=== PATIENT | male | born 1960 | race African-American/Black ===

== ENCOUNTER 2018-06-29 20:24 | Emergency (ER) | payer OTHER ==
[2018-06-29 21:22] VITALS: RESP 18
[2018-06-29] MEDS ORDERED: IBUPROFEN 800 MG TAB PO STA (23:09)
--- NOTE | 2018-06-29 23:14 | ED ---
General Adult HPI - General Chief complaint: Extremity Injury, Lower Stated complaint: pulled muscle-[facility] Time Seen by Provider: 06/29/18 21:27 Source: patient Mode of arrival: ambulatory Limitations: no limitations - History of Present Illness Initial comments: This a 58-year-old male with past medical history of hypertension who presents today for chief complaint of left medial thigh pain. Patient states this at work around 7:30 PM bending down lifting to parts when he lifted up one of the parts he noticed a sharp pain in his left medial thigh, and a bulge. He states he knows for sure that this was not there this morning. He states it happened directly after bending his legs lifting up with the part. Patient was otherwise were to report to emergency department for further brush and treatment. Upon arrival patient was complaining of dull aching of the left medial thigh. Patient states that the pain does not radiate, and increases with palpation. Patient is able to fully range at the hip knee and ankle of the legs bilaterally without difficulty, as well as fully weight-bear. Patient denies any changes in urine color, pain out of portion, pallor of the extremity , numbness, tingling, loss of sensation of the lower extremities, or any other symptoms. Patient denies any recent fever, chills, shortness of breath, chest pain, back pain, abdominal pain, nausea or vomiting, numbness or tingling, dysuria or hematuria, constipation or diarrhea, headaches or visual changes, or any other complaints. Pt BP elevated at 151/101- pt states that he has uncontrolled BP, and is findings a new primary care currently. He states that he was previously prescribed norvasc 5mg - Related Data Home Medications Medication Instructions Recorded Confirmed amLODIPine [Norvasc] 10 mg PO DAILY 04/25/15 04/25/15 Previous Rx's Medication Instructions Recorded amLODIPine [Norvasc] 5 mg PO DAILY #30 tab 04/25/15 Ibuprofen [Motrin] 800 mg PO Q8H PRN 7 Days #21 tab 06/29/18 amLODIPine [Norvasc] 5 mg PO DAILY 30 Days #30 tab 06/29/18 Allergies Allergy/AdvReac Type Severity Reaction Status Date / Time No Known Allergies Allergy Verified 09/27/14 19:58 Review of Systems ROS Statement: Those systems with pertinent positive or pertinent negative responses have been documented in the HPI. ROS Other: All systems not noted in ROS Statement are negative. Constitutional: Denies: fever, chills, weakness Eyes: Denies: eye pain ENT: Denies: ear pain, throat pain Respiratory: Denies: cough, dyspnea, wheezes, hemoptysis, stridor Cardiovascular: Denies: chest pain, palpitations Endocrine: Denies: fatigue Gastrointestinal: Denies: abdominal pain, nausea, vomiting, diarrhea, constipation Genitourinary: Denies: urgency, dysuria, frequency, hematuria Musculoskeletal: Reports: myalgia. Denies: back pain, joint swelling, arthralgia Skin: Denies: rash, lesions, change in color Neurological: Denies: headache, weakness, numbness, paresthesias, confusion, abnormal gait, vertigo Past Medical History Past Medical History: Hypertension History of Any Multi-Drug Resistant Organisms: None Reported Past Surgical History: No Surgical Hx Reported Past Psychological History: No Psychological Hx Reported Smoking Status: Current every day smoker Past Alcohol Use History: None Reported Past Drug Use History: None Reported General Exam - General Exam Comments Initial Comments: General: The patient is awake and alert, in no distress, and does not appear acutely ill. Eye: Pupils are equal, round and reactive to light, extra-ocular movements are intact. No nystagmus. There is normal conjunctiva bilaterally. No signs of icterus. Ears, nose, mouth and throat: There are moist mucous membranes and no oral lesions. Neck: The neck is supple, there is no tenderness or JVD. Cardiovascular: There is a regular rate and rhythm. No murmur, rub or gallop is appreciated. Respiratory: Lungs are clear to auscultation, respirations are non-labored, breath sounds are equal. No wheezes, stridor, rales, or rhonchi. Musculoskeletal: No visible bulk atrophy, hypertrophy, fasciculations, or myoclonus of the UE or LE b/l. Full PROM in UE and LE b/l. Bilateral muscle strength 5/5 for the following muscles: deltoid, biceps, triceps, brachioradialis, wrist extensors/flexor, hip flexor, hip abductors/adductors, hamstrings, quadriceps, feet dorsiflexors/plantar flexors. Sensation intact of the LE equally b/l. Compartments are soft and compressible. No erythema or ecchymosis. Palpable mass in the left medial upper thigh. DP and Posterior tibial pulses equal bilaterally 2+ equally. Neurological: A&O x 3. CN II-XII intact, There are no obvious motor or sensory deficits. Coordination appears grossly intact. Speech is normal. Skin: Skin is warm and dry and no rashes or lesions are noted. Psychiatric: Cooperative, appropriate mood & affect, normal judgment. Limitations: no limitations Course Vital Signs 06/29/18 21:17 Temperature 97.3 F L Pulse Rate 71 Respiratory 18 Rate Blood Pressure 152/101 O2 Sat by Pulse 98 Oximetry Medical Decision Making - Medical Decision Making 58-year-old male presenting today for chief complaint of left eye pain concerning for muscular tear. Given patient's history, was sudden onset of pain and palpable mass in the left thigh after active range of motion I feel that this injury is most likely muscular in nature, possibly a tear of the adductor muscles. Case discussed with Dr. Vargas who agrees with impression. Pt shows no current signs of rhabdo or compartment syndrome at this time. Pt neurovascularly intact. At this time we feel pt is stable for discharge with orthopedic surgery f/u in 1-2 days. Pt agrees with plan. Pt BP elevated at 151/ 100, pt has no complaints upon ROS, no signs of EOD. Pt states he usually takes norvasc 5mg daily however he has been out for a week because he switching PCP. Pt was given 5mg norvac while in the hospital and discharged with 30 day prescription until pt establishes care with new PCP. Repeat BP upon discharge 175/76. Disposition Clinical Impression: Tearing of muscle, Acute pain of left thigh Disposition: HOME SELF-CARE Condition: Good Instructions: Muscle Strain (ED) Additional Instructions: Please use medication as discussed. Please follow-up with orthopedic surgery in the next 1-2 days for muscle tear of the medial thigh. Please return to emergency room if the symptoms increase or worsen or for any other concerns, including increasing pain or darkening of urine as discussed. Prescriptions: Ibuprofen [Motrin] 800 mg PO Q8H PRN 7 Days #21 tab PRN Reason: Pain Is patient prescribed a controlled substance at d/c from ED?: No Referrals: None,Stated [Primary Care Provider] - 1-2 days Tristan Angel MD [STAFF PHYSICIAN] - 1-2 days Time of Disposition: 23:14
[2018-06-29] MEDS ORDERED: amLODIPine 5 MG TAB PO STA (23:25)
[2018-06-29 23:32] VITALS: BP 175/76; PULSE 87; TEMP 98
== END 2018-06-29 23:32 | disposition home or self-care (01) ==
LOC: EC 20:24
DX: S76.212A Strain of adductor muscle, fascia and tendon of left thigh, initial encounter (principal); I10 Essential (primary) hypertension; F17.200 Nicotine dependence, unspecified, uncomplicated; Z79.899 Other long term (current) drug therapy; X50.1XXA Overexertion from prolonged static or awkward postures, initial encounter; Y92.69 Other specified industrial and construction area as the place of occurrence of the external cause; Y99.0 Civilian activity done for income or pay
CPT/HCPCS: 99283

== ENCOUNTER 2018-07-11 22:14 | Emergency (ER) | payer BC ==
[2018-07-11 22:16] VITALS: BP 153/100; PULSE 91; RESP 18; TEMP 98
--- NOTE | 2018-07-11 22:30 | ED ---
General Adult HPI - General Chief complaint: Recheck/Abnormal Lab/Rx Stated complaint: High BP Time Seen by Provider: 07/11/18 22:17 Source: patient, RN notes reviewed Mode of arrival: ambulatory Limitations: no limitations - History of Present Illness Initial comments: This is a pleasant 58-year-old male presents emergency Department with chief complaint of medication refill. Patient states that he lost his prescription for Norvasc 5 mg in which she takes 2 daily for hypertension. Patient states that he did not have his Norvasc today. Patient denies any chest pain, shortness breath, or vision, nausea, vomiting. Patient states that he is new to the area and has not established with a primary care physician. Patient states he is in the midst of this. Patient offers no other complaints at this time. - Related Data Home Medications Medication Instructions Recorded Confirmed amLODIPine [Norvasc] 10 mg PO DAILY 04/25/15 04/25/15 Previous Rx's Medication Instructions Recorded amLODIPine [Norvasc] 5 mg PO DAILY #30 tab 04/25/15 Ibuprofen [Motrin] 800 mg PO Q8H PRN 7 Days #21 tab 06/29/18 amLODIPine [Norvasc] 5 mg PO DAILY 30 Days #30 tab 07/11/18 Allergies Allergy/AdvReac Type Severity Reaction Status Date / Time No Known Allergies Allergy Verified 07/11/18 22:16 Review of Systems ROS Statement: Those systems with pertinent positive or pertinent negative responses have been documented in the HPI. ROS Other: All systems not noted in ROS Statement are negative. Past Medical History Past Medical History: Hypertension History of Any Multi-Drug Resistant Organisms: None Reported Past Surgical History: No Surgical Hx Reported Past Psychological History: No Psychological Hx Reported Smoking Status: Current every day smoker Past Alcohol Use History: None Reported Past Drug Use History: None Reported General Exam Limitations: no limitations General appearance: alert, in no apparent distress Head exam: Present: atraumatic, normocephalic, normal inspection Respiratory exam: Present: normal lung sounds bilaterally. Absent: respiratory distress, wheezes, rales, rhonchi, stridor Cardiovascular Exam: Present: regular rate, normal rhythm, normal heart sounds. Absent: systolic murmur, diastolic murmur, rubs, gallop, clicks Neurological exam: Present: alert, oriented X3, CN II-XII intact, reflexes normal. Absent: motor sensory deficit Skin exam: Present: warm, dry, intact, normal color. Absent: rash Course Vital Signs 07/11/18 22:14 Temperature 98.0 F Pulse Rate 91 Respiratory 18 Rate Blood Pressure 153/100 O2 Sat by Pulse 98 Oximetry Medical Decision Making - Medical Decision Making 58-year-old male presented emergency department for medication refill. Patient has a current blood pressure 157/100. Patient will be given prescription for his Norvasc 5 mg. Patient will given on-call primary care physician and he will follow palpation. Disposition Clinical Impression: Encounter for medication refill, Hypertension Disposition: HOME SELF-CARE Condition: Stable Instructions: Hypertension (ED) Additional Instructions: Please return to the Emergency Department if symptoms worsen or any other concerns. Prescriptions: amLODIPine [Norvasc] 5 mg PO DAILY 30 Days #30 tab Is patient prescribed a controlled substance at d/c from ED?: No Referrals: Brook Bingham MD [STAFF PHYSICIAN] - 1-2 days Time of Disposition: 22:30
== END 2018-07-11 22:37 | disposition home or self-care (01) ==
LOC: EC 22:14
DX: I10 Essential (primary) hypertension (principal); Z76.0 Encounter for issue of repeat prescription; F17.200 Nicotine dependence, unspecified, uncomplicated; Z79.899 Other long term (current) drug therapy
CPT/HCPCS: 99283

== ENCOUNTER → 2018-07-11 | Outpatient (CLI) | payer OTHER ==
--- NOTE | 2018-07-11 23:03 | XR ---
EXAMINATION TYPE: XR femur LT DATE OF EXAM: 07/11/2018 COMPARISON: NONE HISTORY: Femur pain TECHNIQUE: 4 views FINDINGS: There is no fracture nor dislocation. Joint spaces are normal. There is no sign of knee angle nt effusion. IMPRESSION: Negative left femur exam.
== END | disposition home or self-care (01) ==
LOC: RADXRMAIN 21:57
PROVIDERS: ATTEND Physician Assistant
DX: M79.605 Pain in left leg (principal)

== ENCOUNTER 2019-11-28 07:39 | Emergency (ER) | payer OTHER ==
[2019-11-28 07:43] VITALS: BP 152/108; PULSE 69; RESP 16; TEMP 98
[2019-11-28] MEDS ORDERED: ORPHENADRINE 30 MG/ML 2 ML VIAL IM STA (07:56)
[2019-11-28] MEDS ORDERED: ACETAMINOPHEN TAB 500 MG TAB PO STA (07:56)
--- NOTE | 2019-11-28 07:59 | ED ---
General Adult HPI - General Chief complaint: Back Pain/Injury Stated complaint: Shoulder/neck pain Time Seen by Provider: 11/28/19 07:41 Source: EMS, RN notes reviewed Mode of arrival: EMS Limitations: no limitations - History of Present Illness Initial comments: 59-year-old male with a past medical history of hypertension presents to the emergency determine for left neck and shoulder pain. Patient states this has been ongoing for about 4-5 days. States pain is intermittent. Patient states it starts on the left side of his neck and radiates to his left upper shoulder. States that pain worsens with movement. States that he has no pain at this time. States that Motrin alleviates the pain as well as massage and heat. States that when he called the ambulance he was having increased pain but took Motrin and this completely took away the pain. Patient denies any loss of sensation in his left arm. Denies any weakness of the left arm. Patient has no other complaints at this time including shortness of breath, chest pain, abdominal pain, nausea or vomiting, headache, or visual changes. - Related Data Home Medications Medication Instructions Recorded Confirmed amLODIPine [Norvasc] 10 mg PO DAILY 04/25/15 04/25/15 Previous Rx's Medication Instructions Recorded amLODIPine [Norvasc] 5 mg PO DAILY #30 tab 04/25/15 Ibuprofen [Motrin] 800 mg PO Q8H PRN 7 Days #21 tab 06/29/18 amLODIPine [Norvasc] 5 mg PO DAILY 30 Days #30 tab 07/11/18 Acetaminophen [Tylenol] 500 mg PO Q4-6H PRN #20 tab 11/28/19 Cyclobenzaprine [Flexeril] 10 mg PO TID #14 tab 11/28/19 Ibuprofen [Motrin] 600 mg PO Q6HR PRN #20 tab 11/28/19 Allergies Allergy/AdvReac Type Severity Reaction Status Date / Time No Known Allergies Allergy Verified 07/11/18 22:16 Review of Systems ROS Statement: Those systems with pertinent positive or pertinent negative responses have been documented in the HPI. ROS Other: All systems not noted in ROS Statement are negative. Past Medical History Past Medical History: Hypertension History of Any Multi-Drug Resistant Organisms: None Reported Past Surgical History: No Surgical Hx Reported Past Psychological History: No Psychological Hx Reported Smoking Status: Current every day smoker Past Alcohol Use History: None Reported Past Drug Use History: None Reported General Exam Limitations: no limitations General appearance: alert, in no apparent distress Head exam: Present: atraumatic, normocephalic, normal inspection Eye exam: Present: normal appearance, PERRL, EOMI. Absent: scleral icterus, conjunctival injection, periorbital swelling ENT exam: Present: normal exam, mucous membranes moist Neck exam: Present: tenderness (tenderness to L paraspinal cervical muscles. no tenderness to the cervical spine.). Absent: meningismus (full flexion), full ROM (patient has decreased ROM with rotation to the left. Full flexion. Patient states it feels better when he stretches the L paraspinal cervical muscles with lateral flexion. ), lymphadenopathy Respiratory exam: Present: normal lung sounds bilaterally. Absent: respiratory distress, wheezes, rales, rhonchi, stridor Cardiovascular Exam: Present: regular rate, normal rhythm, normal heart sounds. Absent: systolic murmur, diastolic murmur, rubs, gallop, clicks GI/Abdominal exam: Present: normal bowel sounds Extremities exam: Present: normal capillary refill (cap refill < 2 seconds in BUE. radial pulses 2+ bilat) Neurological exam: Present: alert Course Vital Signs 11/28/19 07:40 Temperature 98.0 F Pulse Rate 69 Respiratory 16 Rate Blood Pressure 152/108 O2 Sat by Pulse 97 Oximetry Medical Decision Making - Medical Decision Making Patient presents for left-sided paraspinal neck pain radiating to the left shoulder. Pain is worsened with movement and rotation of the left. Feels b aaron when he laterally flexes to the right and stretches out the muscle. States heat and Motrin alleviate the pain. Patient initially called ambulance but states he took Motrin before they arrived and all his pain is at a 0. States his pain is completely resolved. Given pain worsening with range of motion and alleviation after Motrin pain is likely muscular. Patient was given IM injection of Flexeril and Tylenol to Prevent recurrence. He will be given Motrin and Tylenol outpatient however I did have a long discussion with patient about the appropriate dosing of Motrin. No history of kidney injury, labs were reviewed from previous stays. Discussed using heat and light stretching for pain. Discussed following up with his primary care provider in the next 1-2 days and returning if he has any worsening symptoms. Disposition Clinical Impression: Torticollis, Neck pain Disposition: HOME SELF-CARE Condition: Good Instructions (If sedation given, give patient instructions): Spasmodic Torticollis (ED) Additional Instructions: Please take 1 Motrin every 6 hours as needed. Make sure to eat while taking the Motrin so it does not injure your stomach. You may take Tylenol every 6 hours as needed as well. Take muscle relaxer as directed but do not drive or operate machinery while using this as it may make you drowsy. Apply heat to the area and do gentle stretching. Follow-up with your primary care provider in the next 1-2 days. Return to the emergency department if you have any worsening symptoms. Prescriptions: Cyclobenzaprine [Flexeril] 10 mg PO TID #14 tab Ibuprofen [Motrin] 600 mg PO Q6HR PRN #20 tab PRN Reason: Pain Acetaminophen [Tylenol] 500 mg PO Q4-6H PRN #20 tab PRN Reason: Pain Is patient prescribed a controlled substance at d/c from ED?: No Referrals: Michelle Jaeger MD [Primary Care Provider] - 1-2 days Time of Disposition: 07:56
== END 2019-11-28 08:08 | disposition home or self-care (01) ==
LOC: EC 07:39
DX: M43.6 Torticollis (principal); I10 Essential (primary) hypertension; F17.200 Nicotine dependence, unspecified, uncomplicated; Z79.899 Other long term (current) drug therapy
CPT/HCPCS: 99284; 96372; J2360

== ENCOUNTER → 2020-04-23 | Outpatient (CLI) | payer OTHER ==
--- NOTE | 2020-04-23 14:23 | US ---
EXAMINATION TYPE: US extremity nonvasc mass LT DATE OF EXAM: 04/23/2020 COMPARISON: NONE CLINICAL HISTORY: R22.42 Mass of left thigh. Patient has palpable left inner thigh. Scanning was performed directly over palpable left inner thigh , as well as the contralateral side for comparison purposes. There is echogenic area without definite borders. This appears in the area of striations like muscle tissue. No definite mass seen. IMPRESSION: No distinct mass appreciated at this time. Consider MRI if symptoms persist. Strict clin ical correlation advised.
== END | disposition home or self-care (01) ==
LOC: RADUSWWP 13:44
PROVIDERS: ATTEND Family Medicine
DX: R22.42 Localized swelling, mass and lump, left lower limb (principal)

== ENCOUNTER 2020-08-20 15:54 | Inpatient (IN) | payer MEDICAID, OTHER ==
--- NOTE | 2020-08-20 16:44 | ED ---
Psych HPI - General Chief Complaint: Psychiatric Symptoms Stated Complaint: mental health Time Seen by Provider: 08/20/20 16:02 Source: patient, RN notes reviewed Mode of arrival: ambulatory Limitations: no limitations - History of Present Illness Initial Comments: 60-year-old male presents emergency Department with chief complaint of depression, suicidal ideation. Patient states that he was admitted and recently discharged from [facility]. Patient states he feels he does not need medications. Them and became more depressed. Patient has had thoughts of hurting himself will not go in details. Patient states that he does abuse alcohol, cocaine. Patient states he did use alcohol today. Patient offers no complaints of any physical complaints. - Related Data Previous Rx's Medication Instructions Recorded Albuterol Inhaler [Ventolin Hfa 2 puff INHALATION RT-Q6H PRN 30 08/01/20 Inhaler] Days puff FLUoxetine HCL [PROzac] 20 mg PO DAILY 30 Days cap 08/01/20 Melatonin 5 mg PO HS PRN 30 Days tablet 08/01/20 Nicotine 14Mg/24Hr Patch [Habitrol] 1 patch TRANSDERM DAILY 30 Days 08/01/20 patch amLODIPine [Norvasc] 10 mg PO DAILY 30 Days tab 08/01/20 buPROPion XL [Wellbutrin XL] 300 mg PO DAILY 30 Days tab.er.24h 08/01/20 traZODone HCL [Desyrel] 50 mg PO HS PRN #30 tab 08/01/20 Allergies Allergy/AdvReac Type Severity Reaction Status Date / Time No Known Allergies Allergy Verified 08/20/20 18:10 Review of Systems ROS Statement: Those systems with pertinent positive or pertinent negative responses have been documented in the HPI. ROS Other: All systems not noted in ROS Statement are negative. Past Medical History Past Medical History: Asthma, Hypertension History of Any Multi-Drug Resistant Organisms: None Reported Past Surgical History: No Surgical Hx Reported Past Anesthesia/Blood Transfusion Reactions: No Reported Reaction Past Psychological History: Depression Smoking Status: Current every day smoker Past Alcohol Use History: Daily, Heavy Past Drug Use History: Cocaine General Exam Limitations: no limitations General appearance: alert, in no apparent distress Head exam: Present: atraumatic, normocephalic, normal inspection Eye exam: Present: normal appearance, PERRL, EOMI. Absent: scleral icterus, conjunctival injection, periorbital swelling ENT exam: Present: normal exam, normal oropharynx, mucous membranes moist Neck exam: Present: normal inspection, full ROM. Absent: tenderness, meningismus, lymphadenopathy Respiratory exam: Present: normal lung sounds bilaterally. Absent: respiratory distress, wheezes, rales, rhonchi, stridor Cardiovascular Exam: Present: regular rate, normal rhythm, normal heart sounds. Absent: systolic murmur, diastolic murmur, rubs, gallop, clicks GI/Abdominal exam: Present: soft, normal bowel sounds. Absent: distended, tenderness, guarding, rebound, rigid Neurological exam: Present: alert, oriented X3 Psychiatric exam: Present: depressed, flat affect Course Vital Signs 08/20/20 08/20/20 15:56 19:26 Temperature 98 F 98.4 F Pulse Rate 98 88 Respiratory 18 18 Rate Blood Pressure 137/83 162/80 O2 Sat by Pulse 96 97 Oximetry Medical Decision Making - Lab Data Result diagrams: 08/21/20 07:59 08/21/20 07:59 Disposition Clinical Impression: Cocaine abuse, Major depressive disorder, Suicidal ideation, Alcohol use disorder Disposition: TRANSFER TO PSYCH HOSP/UNIT
[2020-08-20] MEDS ORDERED: MELATONIN 5 MG TABLET PO PRN (20:13)
[2020-08-20] MEDS ORDERED: traZODone HCL 50 MG TAB PO PRN (20:13)
[2020-08-20] MEDS ORDERED: ALBUTEROL INHALER 60 PUFF/8 GM INHALER (MHU) INHALATION PRN (20:13)
[2020-08-20] MEDS ORDERED: MAG HYDROX/AL HYDROX/SIMETH 30 ML CUP PO PRN (20:14)
[2020-08-20] MEDS ORDERED: MAGNESIUM HYDROXIDE 2,400 MG/10 ML CUP PO PRN (20:14)
[2020-08-20] MEDS ORDERED: LORazepam 1 MG TAB PO PRN (20:14)
[2020-08-20] MEDS ORDERED: ACETAMINOPHEN TAB 325 MG TAB PO PRN (20:14)
[2020-08-20] MEDS ORDERED: ZIPRASIDONE 20 MG VIAL IM PRN (20:14)
[2020-08-20] MEDS ORDERED: LORazepam 2 MG/ML INJ IM PRN (20:20)
[2020-08-20] MEDS: NICOTINE 14MG/24HR PATCH TRANSDERM SCH (21:46)
[2020-08-21 08:51] LABS: Basophils # (A) 0.1 k/uL (0-0.2); Basophils % (A) 2 %; Eosinophils # (A) 0.1 k/uL (0-0.7); Eosinophils % (A) 3 %; Lymphocytes # (A) 1.6 k/uL (1.0-4.8); Lymphocytes % (A) 33 %; MCH 32.5 pg (25.0-35.0); MCHC 32.6 g/dL (31.0-37.0); MCV 99.7 fL (80.0-100.0); Mean Platelet Volume 7.8; Monocytes # (A) 0.5 k/uL (0-1.0); Monocytes % (A) 10 %; Neutrophils # (A) 2.5 k/uL (1.3-7.7); Neutrophils % (A) 52 %; Platelet Count 327 k/uL (150-450); RBC 4.61 m/uL (4.30-5.90); RDW 12.9 % (11.5-15.5); WBC 4.8 k/uL (3.8-10.6)
[2020-08-21 08:57] LABS: Albumin 3.6 g/dL (3.5-5.0); Potassium 4.1 mmol/L (3.5-5.1); Total Bilirubin 0.6 mg/dL (0.2-1.3); Total Protein 6.8 g/dL (6.3-8.2)
[2020-08-21] MEDS: amLODIPine 10 MG TAB PO SCH ×2 (09:37→09:41)
[2020-08-21] MEDS: NICOTINE 14MG/24HR PATCH TRANSDERM SCH (09:37)
[2020-08-21] MEDS: FLUoxetine HCL 20 MG CAP PO SCH ×2 (09:37→09:41)
--- NOTE | 2020-08-21 09:56 | P.HP ---
Psychiatric H&P - . H&P Date: 08/21/20 History & Physical: Allergies Allergy/AdvReac Type Severity Reaction Status Date / Time No Known Allergies Allergy Verified 08/20/20 18:10 Vital Signs Temp 97.8 F 08/21/20 06:49 Pulse 65 08/21/20 06:49 Resp 16 08/21/20 06:49 BP 137/76 08/21/20 06:49 Pulse Ox 98 08/21/20 06:49 Intake & Output 08/20/20 08/21/20 08/21/20 18:59 06:59 18:59 Weight 106.594 kg 103.9 kg Laboratory Last Values WBC 4.8 k/uL (3.8-10.6) 08/21/20 07:59 RBC 4.61 m/uL (4.30-5.90) 08/21/20 07:59 Hgb 15.0 gm/dL (13.0-17.5) 08/21/20 07:59 Hct 46.0 % (39.0-53.0) 08/21/20 07:59 MCV 99.7 fL (80.0-100.0) 08/21/20 07:59 MCH 32.5 pg (25.0-35.0) 08/21/20 07:59 MCHC 32.6 g/dL (31.0-37.0) 08/21/20 07:59 RDW 12.9 % (11.5-15.5) 08/21/20 07:59 Plt Count 327 k/uL (150-450) 08/21/20 07:59 Neutrophils % 52 % 08/21/20 07:59 Lymphocytes % 33 % 08/21/20 07:59 Monocytes % 10 % 08/21/20 07:59 Eosinophils % 3 % 08/21/20 07:59 Basophils % 2 % 08/21/20 07:59 Neutrophils # 2.5 k/uL (1.3-7.7) 08/21/20 07:59 Lymphocytes # 1.6 k/uL (1.0-4.8) 08/21/20 07:59 Monocytes # 0.5 k/uL (0-1.0) 08/21/20 07:59 Eosinophils # 0.1 k/uL (0-0.7) 08/21/20 07:59 Basophils # 0.1 k/uL (0-0.2) 08/21/20 07:59 Sodium 141 mmol/L (137-145) 08/21/20 07:59 Potassium 4.1 mmol/L (3.5-5.1) 08/21/20 07:59 Chloride 107 mmol/L (98-107) 08/21/20 07:59 Carbon Dioxide 29 mmol/L (22-30) 08/21/20 07:59 Anion Gap 5 mmol/L 08/21/20 07:59 BUN 14 mg/dL (9-20) 08/21/20 07:59 Creatinine 1.07 mg/dL (0.66-1.25) 08/21/20 07:59 Est GFR (CKD-EPI)AfAm 88 (>60 ml/min/1.73 sqM) 08/21/20 07:59 Est GFR (CKD-EPI)NonAf 76 (>60 ml/min/1.73 sqM) 08/21/20 07:59 Glucose 103 mg/dL (74-99) H 08/21/20 07:59 Calcium 9.0 mg/dL (8.4-10.2) 08/21/20 07:59 Total Bilirubin 0.6 mg/dL (0.2-1.3) 08/21/20 07:59 AST 33 U/L (17-59) 08/21/20 07:59 ALT 36 U/L (4-49) 08/21/20 07:59 Alkaline Phosphatase 79 U/L (38-126) 08/21/20 07:59 Total Protein 6.8 g/dL (6.3-8.2) 08/21/20 07:59 Albumin 3.6 g/dL (3.5-5.0) 08/21/20 07:59 Triglycerides 52 mg/dL (<150) 08/21/20 07:59 Cholesterol 152 mg/dL (<200) 08/21/20 07:59 LDL Cholesterol, Calc 80 mg/dL (0-99) 08/21/20 07:59 HDL Cholesterol 62 mg/dL (40-60) H 08/21/20 07:59 TSH 13.400 mIU/L (0.465-4.680) H 08/21/20 07:59 08/21/20 09:43 IDENTIFYING DATA: Patient is a 60-year-old Jo-Ann male with significant history of depression, alcohol abuse, cocaine use was admitted for depression and thoughts of hurting himself. HPI: Patient presented to the hospital on 08/20/2020 with complaints of depression and suicidal ideation. Patient was recently discharged from [facility] on 08/01/2020 after being admitted for 1 week with similar complaints. Currently the patient is refusing to get out of bed or speak with this advertising copywriter. He expresses he is significantly depressed and has not been able to rest and is refusing to participate in a psychiatric evaluation. He has been noted to refuse medications. PAST PSYCHIATRIC HISTORY: Patient has been diagnosed with Major Depressive Disorder, Cocaine use disorder, and alcohol use disorder. He was discharged from [facility] with home medications of Prozac 20 mg, Wellbutrin XL 300 mg, Trazodone 50 mg and melatonin 5 mg. Patient has set up aftercare with his PCP. He denied any prior attempts at suicide. PMH: Asthma, Hypertension ALLERGIES: NKDA CHEMICAL DEPENDENCY HISTORY: Prior to last admission, patient admitted to be drinking heavily and using cocaine. He is also a daily tobacco user. He was treated at [facility] 5 years ago. He was sober for 2 years before relapsing 2 years ago. He reported drinking up to 2 fifths of liquor per day. FAMILY PSYCHIATRIC/SUBSTANCE USE HISTORY: Unable to obtain SOCIAL HISTORY: From chart review of Dr Burks's assessment on 07/25/2020: "The patient is the oldest of 2 boys born to his parents and stayed together until mom at age 62 of cancer mom was an alcoholic. Dad was a functional alcoholic at 74 of complications of diabetes. The patient has never been although he has 2 children by different women a daughter 30 and a son 30. He does not have much contact with them he does have 2 grandchildren from the. Then he has is lady has lived with for 5 years and her daughter who is 30 and 3 grandchildren. 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 Legally he is on probation until he can come up with $1200 to pay a fine which he has been unable to do. This was for having residue of cocaine in a bag in the back of his car." MENTAL STATUS EXAM: General Appearance: Patient appears to be stated age is resting in bed. Appears slightly disheveled. Behavior: Patient refuses to speak to the provider and has no eye contact. Speech: Patient's speech is non spontaneous, loud in volume. Mood/Affect: Patient reports their mood is depressed, affect is irritable and angry. Suicidality/Homicidality: Unable to assess Perceptions: Unable to assess Though content/process: Unable to assess Memory and concentration: Unable to assess Judgment and insight: Poor STRENGTHS/WEAKNESSES: Unable to assess INTELLECT: verage IMPRESSIONS: Major depressive disorder, recurrent, severe Cocaine use disorder Alcohol use disorder PLAN: -Patient is admitted under voluntary status to [facility]HU for stabilization of psychiatric symptoms and safety. -Medications : Will continue home medications. -Ativan and Geodon PRN for agitation/aggression -WA protocol with Ativan PRN for ETOH withdrawal -Internal Medicine consult to perform medical evaluation and physical. -NRT - nicotine patch -SW on board for discharge planning. Encourage patient to participate in groups to work on coping skills. 08/21/20 13:14
--- NOTE | 2020-08-21 13:44 | P.CONS ---
History of Present Illness - Reason for Consult Medical clearance - History of Present Illness 60-year-old the pleasant male came in the for depression alcohol abuse and cocaine use. Patient does drink one fifth of alcohol every day has been drinking for many days patient has slight tremor. Patient had withdrawals in the past but doesn't want to get admitted to medical floor he says he is fine there and he likes the treatment that he is receiving at the mental health unit. Patient denied any fever chills nausea vomiting abdominal pain dysuria. Patient does smoke trying to cut down on the cigarettes. Review of Systems REVIEW OF SYSTEMS: CONSTITUTIONAL: No fever, no malaise, no fatigue. HEENT: No recent visual problems or hearing problems. Denied any sore throat. CARDIOVASCULAR: No chest pain, orthopnea, PND, no palpitations, no syncope. PULMONARY: No shortness of breath, no cough, no hemoptysis. GASTROINTESTINAL: No diarrhea, no nausea, no vomiting, no abdominal pain. NEUROLOGICAL: No headaches, no weakness, no numbness. HEMATOLOGICAL: Denies any bleeding or petechiae. GENITOURINARY: Denies any burning micturition, frequency, or urgency. MUSCULOSKELETAL/RHEUMATOLOGICAL: Denies any joint pain, swelling, or any muscle pain. ENDOCRINE: Denies any polyuria or polydipsia. The rest of the 14-point review of systems is negative. Past Medical History Past Medical History: Asthma, Hypertension History of Any Multi-Drug Resistant Organisms: None Reported Past Surgical History: No Surgical Hx Reported Past Anesthesia/Blood Transfusion Reactions: No Reported Reaction Past Psychological History: Depression Smoking Status: Current every day smoker Past Alcohol Use History: Daily, Heavy Past Drug Use History: Cocaine Medications and Allergies Home Medications Medication Instructions Recorded Confirmed Type Albuterol Inhaler [Ventolin Hfa 2 puff INHALATION RT-Q6H PRN 30 08/01/20 08/20/20 Rx Inhaler] Days puff FLUoxetine HCL [PROzac] 20 mg PO DAILY 30 Days cap 08/01/20 08/20/20 Rx Melatonin 5 mg PO HS PRN 30 Days tablet 08/01/20 08/20/20 Rx Nicotine 14Mg/24Hr Patch [Habitrol] 1 patch TRANSDERM DAILY 30 Days 08/01/20 08/20/20 Rx patch amLODIPine [Norvasc] 10 mg PO DAILY 30 Days tab 08/01/20 08/20/20 Rx buPROPion XL [Wellbutrin XL] 300 mg PO DAILY 30 Days tab.er.24h 08/01/20 08/20/20 Rx traZODone HCL [Desyrel] 50 mg PO HS PRN #30 tab 08/01/20 08/20/20 Rx Allergies Allergy/AdvReac Type Severity Reaction Status Date / Time No Known Allergies Allergy Verified 08/20/20 18:10 Physical Exam Vitals: Vital Signs Temp Pulse Pulse Resp BP BP Pulse Ox 08/21/20 06:49 97.8 F 65 16 137/76 98 08/20/20 21:05 97.5 F L 90 18 142/87 95 08/20/20 19:26 98.4 F 88 18 162/80 97 08/20/20 15:56 98 F 98 18 137/83 96 Intake and Output 08/20/20 08/21/20 08/21/20 22:59 06:59 14:59 Other: Weight 103.9 kg PHYSICAL EXAMINATION: GENERAL: The patient is alert and oriented x3, not in any acute distress. Does have mild tremor HEENT: Pupils are round and equally reacting to light. EOMI. No scleral icterus. No conjunctival pallor. Normocephalic, atraumatic. No pharyngeal erythema. No thyromegaly. CARDIOVASCULAR: S1 and S2 present. No murmurs, rubs, or gallops. PULMONARY: Chest is clear to auscultation, no wheezing or crackles. ABDOMEN: Soft, nontender, nondistended, normoactive bowel sounds. No palpable organomegaly. MUSCULOSKELETAL: No joint swelling or deformity. EXTREMITIES: No cyanosis, clubbing, or pedal edema. NEUROLOGICAL: Gross neurological examination did not reveal any focal deficits. SKIN: No rashes. Results CBC & Chem 7: 08/21/20 07:59 08/21/20 07:59 Labs: Abnormal Lab Results - Last 24 Hours (Table) 08/21/20 Range/Units 07:59 Glucose 103 H (74-99) mg/dL HDL Cholesterol 62 H (40-60) mg/dL TSH 13.400 H (0.465-4.680) mIU/L Assessment and Plan Plan: -Alcohol abuse: Patient is expected to have withdrawals if patient has significant withdrawals patient can be transferred to medical floor if his withdrawals aren't unmanageable on the mental health unit. As of now patient doesn't have any significant withdrawals and patient is on as needed Ativan for withdrawals -Major depression: Management as per primary service -Cocaine abuse Hypertension patient is started on amlodipine monitor the blood pressure. -Asthma without any significant exacerbation Nicotine abuse: Counseling was provided
[2020-08-21] MEDS: BENZOCAINE/MENTHOL LOZENG 1 EACH LOZENGE MUCOUS MEM PRN (16:30)
[2020-08-21 16:46] LABS: Hemoglobin A1C 5.1 % (4.0-6.0)
[2020-08-22] MEDS: NICOTINE 14MG/24HR PATCH TRANSDERM SCH (09:29)
[2020-08-22] MEDS: FLUoxetine HCL 20 MG CAP PO SCH (09:29)
[2020-08-22] MEDS: amLODIPine 10 MG TAB PO SCH ×2 (09:29→09:58)
[2020-08-22] MEDS: BENZOCAINE/MENTHOL LOZENG 1 EACH LOZENGE MUCOUS MEM PRN ×3 (09:59→23:03)
--- NOTE | 2020-08-22 10:39 | P.PN ---
Progress Note - Text Progress Note Date: 08/22/20 Interval History: Patient was seen wandering the hallways and refused to speak with this television writer in his office. Patient is upset that he is being even asked to be interviewed stating that he feels sick and depressed and needs time before he can talk. He has been refusing his medications. He tells a provider that he have to stop putting me on a timeline. He states he will talk tomorrow. Despite attempted redirection, patient refuses to participate. Mental Status Exam: General Appearance: Patient appears to be stated age is alert, irritable and uncooperative. Behavior: Patient is currently standing at the [employer] and is irritable Speech: Patient's speech is fluent and nonpressured. High in volume. Mood/Affect: Mood is irritable, affect is angry Suicidality/Homicidality: Unable to assess Perceptions: Unable to assess Though content/process: Unable to assess Memory and concentration: AOX3, grossly intact for the purposes of this session Judgment and insight: Very poor Assessment Major depressive disorder, recurrent, severe Cocaine use disorder Alcohol use disorder Plan: -Patient continues to meet criteria for inpatient psychiatric admission for symptom stabilization and safety. -Medications: He has been refusing his home medications which include Prozac 20 mg by mouth daily Trazodone 50 mg by mouth at bedtime when necessary Melatonin 5 mg by mouth at bedtime when necessary -When necessary Ativan and Geodon for agitation/aggression. -NRT - nicotine patch -SW on board for discharge planning. Encouraged the patient to participate in milieu.
[2020-08-23] MEDS: BENZOCAINE/MENTHOL LOZENG 1 EACH LOZENGE MUCOUS MEM PRN (02:50)
[2020-08-23] MEDS: FLUoxetine HCL 20 MG CAP PO SCH (07:56)
[2020-08-23] MEDS: NICOTINE 14MG/24HR PATCH TRANSDERM SCH (07:56)
[2020-08-23] MEDS: amLODIPine 10 MG TAB PO SCH (07:56)
--- NOTE | 2020-08-23 10:55 | P.PN ---
Progress Note - Text Progress Note Date: 08/23/20 Interval History: Patient was seen standing in bed and was directable and agreeable to speak with selling underwriter in the office. Patient reports that he has been increasingly depressed and was not better when he was discharged last. He reports that prior to this admission, he was engaging in alcohol use and other substances. He states that he has been severely depressed and has had suicidal ideations. He continues to endorse suicidal ideation and low mood. He denies any homicidal ideation, intention, and/or plan. He took his Prozac today and does not endorse any side effects at this time. Patient then terminated the interview stating that he had to use the restroom. Mental Status Exam: General Appearance: Patient appears to be stated age, is alert, directable, and intermittently cooperative Behavior: Patient contact is intermittent. Patient is yawning throughout the interview. Speech: Patient's speech is fluent and nonpressured. Mood/Affect: Mood is depressed, affect is congruent and expansive. Suicidality/Homicidality: Patient denies having any homicidal ideation, intention, and/or plan. He endorses suicidal ideation but no intention or plan. Perceptions: Patient denies any visual hallucinations and denies any auditory hallucinations Though content/process: There is no evidence of any delusional thought content and thought process is linear and goal-directed. Memory and concentration: AOX3, grossly intact for the purposes of this session Judgment and insight: Poor Assessment Major depressive disorder, recurrent, severe Cocaine use disorder Alcohol use disorder Plan: -Patient continues to meet criteria for inpatient psychiatric admission for symptom stabilization and safety. Patient has signed adult voluntary form. -Medications: Prozac 20 mg by mouth daily. We will increase to 40 mg on Wednesday. -When necessary Ativan and Geodon for agitation/aggression. -NRT - nicotine patch -SW on board for discharge planning. Encouraged the patient to participate in milieu.
[2020-08-24] MEDS: NICOTINE 14MG/24HR PATCH TRANSDERM SCH (08:39)
[2020-08-24] MEDS: FLUoxetine HCL 20 MG CAP PO SCH (08:40)
[2020-08-24] MEDS: amLODIPine 10 MG TAB PO SCH (08:40)
--- NOTE | 2020-08-24 22:19 | PN ---
PROGRESS NOTE DATE OF SERVICE: 08/24/2020 CHIEF COMPLAINT: The patient was depressed. He had suicide thoughts. He had relapsed to substance use problems. INTERVAL HISTORY: Patient has been doing fair. He had a quiet day yesterday. He comes out on the unit. He wanders about. He will interact with others. He did not attend groups yesterday. He has had minimal scores on CIWA scale. He slept fairly well last night. Today he has been up. He comes out in the day area. He has been cooperative with care. Staff have noted that he has voiced no thoughts of harm to himself or others. He did attend 1 group today and will seem to be engaged. CIWA scores have continued to be 0. He has been running mildly elevated systolic blood pressure with his vital signs this afternoon at 4:30 pm, including BP 142/93 and pulse of 83. The patient talked at length about the struggles he has had with substance abuse. He notes that he is very much focused on the idea of getting completely off abusive substances. He does have an interest in a place such [facility] where he could get support for staying clean. He notes that he has had some general complaints which he related possibly to his medications, including a lot of tiredness, where he has been spending quite a bit of time in his room lying down. He is unclear whether or not his psychotropic medications have been helping. MENTAL STATUS: Patient sat without restlessness. He gave fairly good eye contact. He answered questions with direct responses. His thoughts were clear. He did not say a lot. He generally gave brief answers. He seemed to pay good attention to the conversation. His affect was somewhat constricted. His mood depressed. He was moderately distressed. There was no indication of thought disorder. He voiced no thoughts of harm to self or others. On cognitive exam, he was oriented and alert. ASSESSMENT: I will continue the current diagnosis and treatment plan. We will continue to take make efforts to engage the patient in individual and group therapeutic activities. I will continue psychotropic medications the same including Prozac 20 mg a day. He also has trazodone 50 mg at bedtime p.r.n. I had an extensive discussion with the patient regarding substance withdrawal issues. We discussed the time course of withdrawal, typical side effects and difficulties in early withdrawal. We talked about his needing to get beyond October 08 before he may see much improvement in terms of mood and anxiety issues. We talked about what things the patient could do to seek out support to help manage in early withdrawal. We will focus on stabilization and discharge planning. TERRANCE / KRISTINAN: [id number] /
[2020-08-25] MEDS: NICOTINE 14MG/24HR PATCH TRANSDERM SCH (08:33)
[2020-08-25] MEDS: amLODIPine 10 MG TAB PO SCH (08:33)
[2020-08-25] MEDS ORDERED: FLUoxetine HCL 10 MG CAP PO SCH (09:00)
[2020-08-25] MEDS: cloNIDine HCL 0.2 MG TAB PO SCH (17:59)
--- NOTE | 2020-08-26 01:00 | PN ---
PROGRESS NOTE DATE OF SERVICE: 08/25/2020. CHIEF COMPLAINT: The patient was depressed. He had suicide thoughts. He had relapsed to substance use problems. INTERVAL HISTORY: The patient has been doing fair. He had a quiet day yesterday. He comes out in the day area. He wanders about. He will interact with others. He does tend to keep to himself and seems to have a few people on the unit that he is most comfortable with. He did attend one group yesterday. His CIWA scores have been negligible. He slept fairly well last night. Today he has been up. He has been distressed today about the idea of the Prozac being increased to 30 mg a day. He says he previously has been on Prozac and that at 20 mg it causes chest pain, which he did not have when he was on 10 mg. He was upset that not only was the dose 20 mg, but today it was increased to 30 mg. He acknowledges that he has significant substance use issues with likely withdrawal problems. He says he is well aware of withdrawal issues from may previous relapses and recovery. He says that his main focus is to get his support system back together which includes AA meetings and other support situations he has been involved in to help with withdrawal and moving forward with what he needs to do to take care of himself in his daily life. He does acknowledge that he is likely having some mood swings and irritability relating to withdrawal. It is noted that his blood pressure has been running up with his last pressure this morning at 8:30 being 138/94 with a pulse of 73. His temperature has been stable. He has not had diaphoresis. He has concern about the Prozac being increased. MENTAL STATUS: Patient sat with some restlessness. He had fair eye contact. He answered questions appropriately. His thoughts were clear. He was spontaneous and somewhat interactive. His affect was intense. He initially had an angry manner, though he seemed quiet through the course of the interview. His mood was dysphoric. He was moderately distressed. There was no indication of thought disorder. He voiced no thoughts of harm. Cognition was clear. ASSESSMENT: I will continue the current diagnosis and treatment plan. I will reduce Prozac to 10 mg a day based on the patient's request. I indicated that he could review this with Dr. Cooper. I discussed that I would question whether Prozac would be causing the physical symptoms he is having and that I would be more inclined to believe that withdrawal issues are his major factor both for mental as well as physical complaints. I also indicated to the patient that I was somewhat skeptical about what benefit he might get on antidepressant, particularly in early phase of withdrawal. We discussed that he needs to be beyond 6 weeks of withdrawal before antidepressants can be fully effective. I will start the patient on clonidine 0.2 mg oral. I gave him the option of a patch, so he said he would rather take pills. The indication for clonidine is to help address his blood pressure issues and also as an adjuvant for managing withdrawal issues. We will focus on stabilization and discharge planning. MMKALEBL / IJN: [id number] /
[2020-08-26] MEDS: cloNIDine HCL 0.2 MG TAB PO SCH (08:21)
[2020-08-26] MEDS: NICOTINE 14MG/24HR PATCH TRANSDERM SCH (08:21)
[2020-08-26] MEDS: amLODIPine 10 MG TAB PO SCH (08:21)
[2020-08-26] MEDS: FLUoxetine HCL 10 MG CAP PO SCH (08:21)
--- NOTE | 2020-08-26 11:16 | P.PN ---
Progress Note - Text Progress Note Date: 08/26/20 Interval History: Patient was seen in bed and was refusing to speak with principal technical writer in the office. She expresses strong disdain for this provider. He reports that he is upset that this provider tried increasing his Prozac to 30 mg after he expressed that he had pain in his chest last time this medication was increased. He expresses frustration with this whole entire treatment team feeling like he is rushed. He is currently endorsing suicidal ideation for refuses to participate in the interview for further exploration. He states a strong desire to harm himself. Patient expresses that he does not trust this doctor at all. Mental Status Exam: General Appearance: Patient appears to be stated age is alert, undirectable, and uncooperative. Behavior: Patient is resting in bed and is refusing any eye contact. Psychomotor activity is elevated. Speech: Patient's speech is fluent and nonpressured. High in volume. Mood/Affect: Mood is angry, affect is irritable and upset. Suicidality/Homicidality: Patient endorses suicidal ideation. Perceptions: Patient denies any visual hallucinations and denies any auditory hallucinations Though content/process: There is no evidence of any delusional thought content and thought process is linear and goal-directed. Memory and concentration: AOX3, grossly intact for the purposes of this session Judgment and insight: Very poor Assessment Major depressive disorder, recurrent, severe Cocaine use disorder Alcohol use disorder Plan: -Patient continues to meet criteria for inpatient psychiatric admission for symptom stabilization and safety. Patient has signed adult voluntary form. -Medications: No changes in his current medications. Continue Prozac 10 mg by mouth daily for depression/anxiety Continue trazodone 50 mg by mouth at bedtime when necessary for depression/insomnia Continue clonidine 0.2 mg by mouth daily for withdrawals -When necessary Ativan and Geodon for agitation/aggression. -NRT - nicotine patch -SW on board for discharge planning. Encouraged the patient to participate in milieu.
[2020-08-27] MEDS: FLUoxetine HCL 10 MG CAP PO SCH (09:28)
[2020-08-27] MEDS: amLODIPine 10 MG TAB PO SCH (09:28)
[2020-08-27] MEDS: cloNIDine HCL 0.2 MG TAB PO SCH (09:28)
[2020-08-27] MEDS: NICOTINE 14MG/24HR PATCH TRANSDERM SCH (09:28)
--- NOTE | 2020-08-27 10:46 | P.PN ---
Progress Note - Text Progress Note Date: 08/27/20 Interval History: Patient was seen wandering the hallways and refused to speak with rfp writer in the office. Patient continues to express strong disdain for this provider. He expresses a lot of disdain by this provider due to the fact of the Prozac situation over the weekend. He continues to endorse depression and suicidal ideation. He states that he continues to have urges to want to hurt himself. He is not open to any medication adjustments at this time. He states that his medications are currently at the right dose and even attended group this morning. Mental Status Exam: General Appearance: Patient appears to be stated age, is alert, directable, and uncooperative. Behavior: Patient refused to speak with the rfp writer in private, and walked away from the nursing station when approached for a follow-up interview. Speech: Patient's speech is fluent and nonpressured. Loud in volume. Mood/Affect: Mood is improving mildly, affect is irritable and expansive. Suicidality/Homicidality: Patient continues to endorse suicidal ideation. Perceptions: Patient denies any visual hallucinations and denies any auditory hallucinations Though content/process: There is no evidence of any delusional thought content and thought process is linear and goal-directed. Memory and concentration: AOX3, grossly intact for the purposes of this session Judgment and insight: Poor Assessment Major depressive disorder, recurrent, severe Cocaine use disorder Alcohol use disorder Plan: -Patient continues to meet criteria for inpatient psychiatric admission for symptom stabilization and safety. Patient has signed adult voluntary form. -Medications: No changes in his current medications. Continue Prozac 10 mg by mouth daily for depression/anxiety Continue trazodone 50 mg by mouth at bedtime when necessary for depression/insomnia Continue clonidine 0.2 mg by mouth daily for withdrawals -When necessary Ativan and Geodon for agitation/aggression. -NRT - nicotine patch -SW on board for discharge planning. Encouraged the patient to participate in milieu.
[2020-08-27 14:56] VITALS: BMI 27.8
[2020-08-28 07:03] VITALS: RESP 16
[2020-08-28] MEDS: cloNIDine HCL 0.2 MG TAB PO SCH (08:34)
[2020-08-28] MEDS: FLUoxetine HCL 10 MG CAP PO SCH (08:34)
[2020-08-28] MEDS: NICOTINE 14MG/24HR PATCH TRANSDERM SCH (08:34)
[2020-08-28] MEDS: amLODIPine 10 MG TAB PO SCH (08:34)
--- NOTE | 2020-08-28 12:37 | P.PN ---
Progress Note - Text Progress Note Date: 08/28/20 Interval History: Patient was seen in his bedroom and refused to get out of bed to speak with film writer in the office preferred to stay in bed. Patient continues to express strong distrust towards this physician. Despite multiple attempts on evaluating the patient, the patient continues to express his disdain for this provider and refuses to engage in any significant psychiatric evaluation. He continues to endorse suicidal ideation but does not elaborate on any plan or intention when explored. This provider tried at length to discuss any safety planning as well as to determine his home situation upon discharge, but the patient is unwilling to cooperate at this time. He remains fixated that he is on the right medications and refuses to change any medications at this time. Mental Status Exam: General Appearance: Patient appears to be stated age, is alert, directable, and uncooperative. Behavior: Patient refused to speak with the film writer in private, patient stated in bed with poor eye contact. Speech: Patient's speech is fluent and nonpressured. Loud in volume. Mood/Affect: Mood is angry, affect is irritable and expansive. Suicidality/Homicidality: Patient continues to endorse suicidal ideation. Perceptions: Unable to assess Though content/process: There is no evidence of any delusional thought content and thought process is linear and goal-directed. Memory and concentration: AOX3, grossly intact for the purposes of this session Judgment and insight: Poor Assessment Major depressive disorder, recurrent, severe Cocaine use disorder Alcohol use disorder Plan: -Patient continues to meet criteria for inpatient psychiatric admission for symptom stabilization and safety. Patient has signed adult voluntary form. -Medications: No changes in his current medications. Continue Prozac 10 mg by mouth daily for depression/anxiety Continue trazodone 50 mg by mouth at bedtime when necessary for depression/insomnia Continue clonidine 0.2 mg by mouth daily for withdrawals -When necessary Ativan and Geodon for agitation/aggression. -NRT - nicotine patch -SW on board for discharge planning. Encouraged the patient to participate in milieu. -Will encourage social work to work on safety planning and further evaluation as the patient refuses to participate in a psychiatric evaluation despite multiple times by this provider.
[2020-08-29 06:55] VITALS: TEMP 98.2
[2020-08-29] MEDS: amLODIPine 10 MG TAB PO SCH (07:51)
[2020-08-29] MEDS: FLUoxetine HCL 10 MG CAP PO SCH (07:51)
[2020-08-29] MEDS: cloNIDine HCL 0.2 MG TAB PO SCH (07:51)
[2020-08-29] MEDS: NICOTINE 14MG/24HR PATCH TRANSDERM SCH (07:51)
[2020-08-29 07:52] VITALS: BP 133/84; PULSE 68
--- NOTE | 2020-08-29 10:21 | P.PN ---
Progress Note - Text Progress Note Date: 08/29/20 Interval History: Patient was seen in bed and refused to get out of bed to speak with the investment underwriter in the office. Patient currently reports that he feels "a little better." He continues endorse mild suicidal ideation but is not able to verbalize any intention or plan. He denies any homicidal ideation, intention, and/or plan. He reports auditory visual hallucinations. He has been adherent with his medications and denies any side effects at this time. He refuses any medication adjustments today. Mental Status Exam: General Appearance: Patient appears to be stated age is alert, directable, and intermittently cooperative. Behavior: Patient is lying in bed calmly without any agitated behavior. Speech: Patient's speech is fluent and nonpressured. Mood/Affect: Mood is improving mildly, affect is congruent and constricted. Suicidality/Homicidality: Patient reports no homicidal ideation, intention, and/or plan. He reports suicidal ideation but denies any intention or plan. Perceptions: Patient denies any visual hallucinations and denies any auditory hallucinations Though content/process: There is no evidence of any delusional thought content and thought process is linear and goal-directed. Memory and concentration: AOX3, grossly intact for the purposes of this session Judgment and insight: Improving mildly Assessment Major depressive disorder, recurrent, severe Cocaine use disorder Alcohol use disorder Plan: -Patient continues to meet criteria for inpatient psychiatric admission for symptom stabilization and safety. Patient has signed adult voluntary form. -Medications: No changes in his current medications. Continue Prozac 10 mg by mouth daily for depression/anxiety Continue trazodone 50 mg by mouth at bedtime when necessary for depression/insomnia Continue clonidine 0.2 mg by mouth daily for withdrawals -When necessary Ativan and Geodon for agitation/aggression. -NRT - nicotine patch -SW on board for discharge planning. Encouraged the patient to participate in milieu.
--- NOTE | 2020-08-29 11:34 | P.DS ---
Providers Date of admission: 08/20/20 19:19 Expected date of discharge: 08/29/20 Attending physician: Ozzie Cooper MD Consults: 08/20/20 20:14 Consult Physician Routine Consulting Provider: Rafael Mahajan Consult Reason/Comments: H&P and medical Do you want consulting provider notified?: Yes Primary care physician: Michelle Jaeger - Discharge Diagnosis(es) (1) Major depressive disorder Current Visit: Yes Status: Acute Priority: High (2) Cocaine abuse Current Visit: Yes Status: Chronic Priority: Medium (3) Alcohol use disorder Current Visit: Yes Status: Chronic Priority: Medium Hospital Course: Admission HPI: Patient is a 60-year-old [place] male with significant history of depression, alcohol abuse, cocaine use was admitted for depression and thoughts of hurting himself. Patient presented to the hospital on 08/20/2020 with complaints of depression and suicidal ideation. Patient was recently discharged from [facility] on 08/01/2020 after being admitted for 1 week with similar complaints. Currently the patient is refusing to get out of bed or speak with this field underwriter. He expresses he is significantly depressed and has not been able to rest and is refusing to participate in a psychiatric evaluation. He has been noted to refuse medications. Patient reports that he has been increasingly depressed and was not better when he was discharged last. He reports that prior to this admission, he was engaging in alcohol use and other substances. He states that he has been severely depressed and has had suicidal ideations. He continues to endorse suicidal ideation and low mood. He denies any homicidal ideation, intention, and/or plan. Hospital course: Upon admission to the unit patient was initially irritable and upset. Patient was however difficult to direct and apprehensive to commence treatment. Patient primarily stayed in his room and was isolative to himself. He would not engage in milieu or group activities. When he did attend groups he was often noted to be an appropriate and controlling in the group. Furthermore throughout the hospital stay, the patient refused to participate in psychiatric evaluation with this provider. He always felt like he was being bothered. He would not let this provider explore any of his psychiatric symptoms. He was upset at the increase in Prozac and refused the medications. Since then, the patient has been on his regimen of Prozac 10 mg, clonidine 0.2 mg twice a day, and melaton in. Patient has been compliant on this regimen. Despite this, the patient continued to be apprehensive about participating in his care. He was often dismissive and upset towards this provider and other staff would try to explore his symptoms. This provider and staff have constantly try to work with the patient but he remained obstinate and stubborn. Although he would always endorse suicidal thoughts, he refused to elaborate on any plans or intentions. He was also noted to be presenting as bright around peers. On day of discharge, the patient reported that he has been feeling overall better. He is endorsing suicidal thoughts but is not able to verbalize any intention or plan. He denies any homicidal ideations or intentions. He refused further exploration on safety planning. He expressed a strong desire to stay here but feels like if insurance cannot pay for it then he will leave. At this time, there is no therapeutic benefit for his inpatient admission. Mental status exam: General Appearance: Patient appears to be stated age is alert, pleasant, and cooperative. Patient is in no acute distress and has fair hygiene and grooming Behavior: Patient is verbally agitated about being discharged. Speech: Patient's speech is fluent and nonpressured. Mood/Affect: Patient reports their mood is "feeling better", affect is irate and annoyed. Suicidality/Homicidality: Patient denies having any suicidal or homicidal ideation intent or plan. Perceptions: Patient denies any auditory or visual hallucinations. Though content/process: There is no evidence of any delusional thought content and thought process is linear and goal-directed. Memory and concentration: AOX3, grossly intact for the purposes of this session. Can spell "WORLD" backwards correctly. Judgment and insight: Improved with guarded prognosis Impression: Major depressive disorder, recurrent, severe Cocaine use disorder Alcohol use disorder Plan: -Continue with discharge today as there is no therapeutic benefit for the patient to be in an inpatient psychiatric unit. He refuses to participate in care. He is unable to verbalize any imminent thoughts or plans of harm to self or others. He has been noted to be bright on the unit with certain peers questioning the severity of his depression. Patient will remain at chronically elevated risk for harm to self and/or others due to his impulsivity and polysubstance abuse. -Continue medications: Continue Prozac 10 mg by mouth daily for depression/anxiety Continue trazodone 50 mg by mouth at bedtime when necessary for depression/insomnia Continue clonidine 0.2 mg by mouth daily for withdrawal -Patient was counseled on the need for medication compliance and appropriate follow-up at mental health and also primary care for medical issues. -Social work to arrange for and conduct family meeting to ensure safety upon discharge and answer any questions/concerns. Social work also to arrange for patients follow up appointments with [facility] for psychiatric care along with follow up with primary care provider. -We will attempt to set up the mobile crisis team to monitor the patient. -Patient counseled on abstaining from recreational drugs and marijuana and alcohol. Was informed/educated on the adverse effects on their physical and mental health. Patient verbally agreed and understood. Patient was offered substance abuse treatment however declined at this time. -Patient was instructed to return to the hospital or seek immediate medical care if their psychiatric or medical symptoms do worsen or reoccur. Vital Signs Temp 98.2 F 08/29/20 06:17 Pulse 68 08/29/20 07:52 Resp 16 08/29/20 06:17 BP 133/84 08/29/20 07:52 Pulse Ox 96 08/25/20 06:40 Laboratory Results WBC 4.8 k/uL (3.8-10.6) 08/21/20 07:59 RBC 4.61 m/uL (4.30-5.90) 08/21/20 07:59 Hgb 15.0 gm/dL (13.0-17.5) 08/21/20 07:59 Hct 46.0 % (39.0-53.0) 08/21/20 07:59 MCV 99.7 fL (80.0-100.0) 08/21/20 07:59 MCH 32.5 pg (25.0-35.0) 08/21/20 07:59 MCHC 32.6 g/dL (31.0-37.0) 08/21/20 07:59 RDW 12.9 % (11.5-15.5) 08/21/20 07:59 Plt Count 327 k/uL (150-450) 08/21/20 07:59 Neutrophils % 52 % 08/21/20 07:59 Lymphocytes % 33 % 08/21/20 07:59 Monocytes % 10 % 08/21/20 07:59 Eosinophils % 3 % 08/21/20 07:59 Basophils % 2 % 08/21/20 07:59 Neutrophils # 2.5 k/uL (1.3-7.7) 08/21/20 07:59 Lymphocytes # 1.6 k/uL (1.0-4.8) 08/21/20 07:59 Monocytes # 0.5 k/uL (0-1.0) 08/21/20 07:59 Eosinophils # 0.1 k/uL (0-0.7) 08/21/20 07:59 Basophils # 0.1 k/uL (0-0.2) 08/21/20 07:59 Sodium 141 mmol/L (137-145) 08/21/20 07:59 Potassium 4.1 mmol/L (3.5-5.1) 08/21/20 07:59 Chloride 107 mmol/L (98-107) 08/21/20 07:59 Carbon Dioxide 29 mmol/L (22-30) 08/21/20 07:59 Anion Gap 5 mmol/L 08/21/20 07:59 BUN 14 mg/dL (9-20) 08/21/20 07:59 Creatinine 1.07 mg/dL (0.66-1.25) 08/21/20 07:59 Est GFR (CKD-EPI)AfAm 88 (>60 ml/min/1.73 sqM) 08/21/20 07:59 Est GFR (CKD-EPI)NonAf 76 (>60 ml/min/1.73 sqM) 08/21/20 07:59 Glucose 103 mg/dL (74-99) H 08/21/20 07:[address] Glu mg/dL 100 08/21/20 07:59 Hemoglobin A1c 5.1 % (4.0-6.0) 08/21/20 07:59 Calcium 9.0 mg/dL (8.4-10.2) 08/21/20 07:59 Total Bilirubin 0.6 mg/dL (0.2-1.3) 08/21/20 07:59 AST 33 U/L (17-59) 08/21/20 07:59 ALT 36 U/L (4-49) 08/21/20 07:59 Alkaline Phosphatase 79 U/L (38-126) 08/21/20 07:59 Total Protein 6.8 g/dL (6.3-8.2) 08/21/20 07:59 Albumin 3.6 g/dL (3.5-5.0) 08/21/20 07:59 Triglycerides 52 mg/dL (<150) 08/21/20 07:59 Cholesterol 152 mg/dL (<200) 08/21/20 07:59 LDL Cholesterol, Calc 80 mg/dL (0-99) 08/21/20 07:59 HDL Cholesterol 62 mg/dL (40-60) H 08/21/20 07:59 TSH 13.400 mIU/L (0.465-4.680) H 08/21/20 07:59 Free T4 0.79 ng/dL (0.78-2.19) 08/21/20 07:59 Allergies Allergy/AdvReac Type Severity Reaction Status Date / Time No Known Allergies Allergy Verified 08/20/20 18:10 Patient Condition at Discharge: Stable Plan - Discharge Summary Discharge Rx Participant: Yes New Discharge Prescriptions: New cloNIDine HCL [Catapres] 0.2 mg PO DAILY 30 Days tab Benzocaine/Menthol Lozeng [Cepacol lozenge] 1 each MUCOUS MEM Q4HR PRN 30 Days lozenge PRN Reason: Nasal Congestion FLUoxetine HCL [PROzac] 10 mg PO DAILY 30 Days cap Continue traZODone HCL [Desyrel] 50 mg PO HS PRN #30 tab PRN Reason: Insomnia Melatonin 5 mg PO HS PRN 30 Days tablet PRN Reason: Insomnia amLODIPine [Norvasc] 10 mg PO DAILY 30 Days tab Albuterol Inhaler [Ventolin Hfa Inhaler] 2 puff INHALATION RT-Q6H PRN 30 Days puff PRN Reason: Shortness of Breath Discontinued Nicotine 14Mg/24Hr Patch [Habitrol] 1 patch TRANSDERM DAILY 30 Days patch FLUoxetine HCL [PROzac] 20 mg PO DAILY 30 Days cap buPROPion XL [Wellbutrin XL] 300 mg PO DAILY 30 Days tab.er.24h Discharge Medication List Albuterol Inhaler [Ventolin Hfa Inhaler] 2 puff INHALATION RT-Q6H PRN 30 Days puff 08/29/20 [Rx] Benzocaine/Menthol Lozeng [Cepacol lozenge] 1 each MUCOUS MEM Q4HR PRN 30 Days lozenge 08/29/20 [Rx] FLUoxetine HCL [PROzac] 10 mg PO DAILY 30 Days cap 08/29/20 [Rx] Melatonin 5 mg PO HS PRN 30 Days tablet 08/29/20 [Rx] amLODIPine [Norvasc] 10 mg PO DAILY 30 Days tab 08/29/20 [Rx] cloNIDine HCL [Catapres] 0.2 mg PO DAILY 30 Days tab 08/29/20 [Rx] traZODone HCL [Desyrel] 50 mg PO HS PRN #30 tab 08/29/20 [Rx] Follow up Appointment(s)/Referral(s): Michelle Jaeger MD [Primary Care Provider] - 1-2 days Activity/Diet/Wound Care/Special Instructions: Activity and diet as tolerated. Avoid the use of street drugs and alcohol. Take all medications as prescribed. When you are in need of refills on your medications please contact your medical provider and/or outpatient psychiatrist to have this done. Please go to scheduled outpatient appointment for aftercare treatment. If symptoms return or become worse, call the crisis line at and/or go to the nearest emergency room for evaluation. Discharge Disposition: HOME SELF-CARE
== END 2020-08-29 13:55 | disposition home or self-care (01) | DRG 885 ==
LOC: EC 15:54 → 3MHU 19:19
PROVIDERS: ADMIT Psychiatry & Neurology Psychiatry; ATTEND Psychiatry & Neurology Psychiatry
DX: F33.2 Major depressive disorder, recurrent severe without psychotic features (principal); R45.851 Suicidal ideations; F41.9 Anxiety disorder, unspecified; G47.00 Insomnia, unspecified; I10 Essential (primary) hypertension; J45.909 Unspecified asthma, uncomplicated; F17.200 Nicotine dependence, unspecified, uncomplicated; F14.10 Cocaine abuse, uncomplicated; F10.10 Alcohol abuse, uncomplicated; Z65.3 Problems related to other legal circumstances; Z79.899 Other long term (current) drug therapy; Z91.83 Wandering in diseases classified elsewhere; Z83.3 Family history of diabetes mellitus; Z80.9 Family history of malignant neoplasm, unspecified
CPT/HCPCS: 80053; 80061; 82075; 83036; 84439; 84443; 85025; 99285

== ENCOUNTER 2022-05-05 10:16 | Inpatient (IN) | payer MEDICAID, OTHER ==
[2022-05-05 11:52] LABS: Appearance,Urine Clear (Clear); Bilirubin,Urine Negative (Negative); Blood,Urine Small (Negative); Color,Urine Yellow; Glucose,Urine (UA) Negative (Negative); Ketones,Urine Negative (Negative); Leukocyte Esterase,Urine Trace (Negative); Mucus,Urine Rare /hpf; Nitrite,Urine Negative (Negative); Protein,Urine Trace (Negative); RBC,Urine 4 /hpf (0-5); Specific Gravity,Urine 1.019 (1.001-1.035); Squamous Epithelial Cell,Urine 3 /hpf (0-4); Urobilinogen,Urine <2.0 mg/dL (<2.0); WBC,Urine 6 /hpf (0-5)
[2022-05-05 11:58] LABS: Amphetamine Screen,Urine Not Detected (NotDetected); Barbiturate Screen,Urine Not Detected (NotDetected); Benzodiazepines Screen,Urine Not Detected (NotDetected); Cocaine Screen,Urine Detected (NotDetected); Methadone Screen, Urine Not Detected (NotDetected); Opiate Screen,Urine Not Detected (NotDetected); Oxycodone Screen, Urine Not Detected (NotDetected); Phencyclidine Screen,Urine Not Detected (NotDetected); Tricyclic Antidepressant,Urine Not Detected (NotDetected); Urn Cannabinoid Scrn Not Detected (NotDetected)
--- NOTE | 2022-05-05 16:29 | ED ---
Psych HPI - General Chief Complaint: Psychiatric Symptoms Stated Complaint: mental health Time Seen by Provider: 05/05/22 10:30 Source: patient Mode of arrival: ambulatory - History of Present Illness Initial Comments: 62-year-old male with past history of asthma and hypertension presents to the emergency department stating that he has suicidal ideations. He is homeless. He drinks daily heavily and also uses cocaine. He states that for the last month he has had worsening symptoms of feeling like he could hurt himself. He states that he was given a jump in front of cars. He denies any homicidal ideations. Patient not actively intoxicated. He denies attempting anything to harm himself today. No other alleviating, precipitating or modifying factors - Related Data Home Medications Medication Instructions Recorded Confirmed Levothyroxine Sodium [Synthroid] 125 mcg PO DAILY 05/05/22 05/05/22 Previous Rx's Medication Instructions Recorded amLODIPine [Norvasc] 10 mg PO DAILY 30 Days tab 08/29/20 Allergies Allergy/AdvReac Type Severity Reaction Status Date / Time No Known Allergies Allergy Verified 05/05/22 11:31 Review of Systems ROS Statement: Those systems with pertinent positive or pertinent negative responses have been documented in the HPI. ROS Other: All systems not noted in ROS Statement are negative. Past Medical History Past Medical History: Asthma, Hypertension History of Any Multi-Drug Resistant Organisms: None Reported Past Surgical History: No Surgical Hx Reported Past Anesthesia/Blood Transfusion Reactions: No Reported Reaction Past Psychological History: Depression Smoking Status: Current every day smoker Past Alcohol Use History: Daily, Heavy Past Drug Use History: Cocaine General Exam Limitations: no limitations General appearance: alert, in no apparent distress Head exam: Present: atraumatic, normocephalic, normal inspection Eye exam: Present: normal appearance, PERRL, EOMI. Absent: scleral icterus, conjunctival injection, periorbital swelling ENT exam: Present: normal exam, mucous membranes moist Neck exam: Present: normal inspection. Absent: tenderness, meningismus, lymphadenopathy Respiratory exam: Present: normal lung sounds bilaterally. Absent: respiratory distress, wheezes, rales, rhonchi, stridor Cardiovascular Exam: Present: regular rate, normal rhythm, normal heart sounds. Absent: systolic murmur, diastolic murmur, rubs, gallop, clicks GI/Abdominal exam: Present: soft, normal bowel sounds. Absent: distended, tenderness, guarding, rebound, rigid Extremities exam: Present: normal inspection, full ROM, normal capillary refill. Absent: tenderness, pedal edema, joint swelling, calf tenderness Back exam: Present: normal inspection Neurological exam: Present: alert, oriented X3, CN II-XII intact Psychiatric exam: Present: depressed, suicidal ideation Skin exam: Present: warm, dry, intact, normal color. Absent: rash Course Vital Signs 05/05/22 10:17 Temperature 98.1 F Pulse Rate 68 Respiratory 18 Rate Blood Pressure 159/97 O2 Sat by Pulse 97 Oximetry Medical Decision Making - Medical Decision Making Upon arrival patient was placed into room 11. Thorough history and physical exam was performed. He does provide a urine sample. He is evaluated by EPS and they do recommend admission - Lab Data Lab Results 05/05/22 05/05/22 Range/Units 11:01 14:49 Urine Color Yellow Urine Appearance Clear (Clear) Urine pH 6.0 (5.0-8.0) Ur Specific [place] 1.019 (1.001-1.035) Urine Protein Trace H (Negative) Urine Glucose (UA) Negative (Negative) Urine Ketones Negative (Negative) Urine Blood Small H (Negative) Urine Nitrite Negative (Negative) Urine Bilirubin Negative (Negative) Urine Urobilinogen <2.0 (<2.0) mg/dL Ur Leukocyte Esterase Trace H (Negative) Urine RBC 4 (0-5) /hpf Urine WBC 6 H (0-5) /hpf Ur Squamous Epith Cells 3 (0-4) /hpf Urine Mucus Rare H (None) /hpf Urine Opiates Screen Not Detected (NotDetected) Ur Oxycodone Screen Not Detected (NotDetected) Urine Methadone Screen Not Detected (NotDetected) Ur Propoxyphene Screen Not Detected (NotDetected) Ur Barbiturates Screen Not Detected (NotDetected) U Tricyclic Antidepress Not Detected (NotDetected) Ur Phencyclidine Scrn Not Detected (NotDetected) Ur Amphetamines Screen Not Detected (NotDetected) U Methamphetamines Scrn Detected H (NotDetected) U Benzodiazepines Scrn Not Detected (NotDetected) Urine Cocaine Screen Detected H (NotDetected) U Marijuana (THC) Screen Not Detected (NotDetected) Coronavirus (PCR) Not Detected (Not Detectd) Disposition Clinical Impression: Suicidal ideation, Major depressive disorder Disposition: TRANSFER TO PSYCH HOSP/UNIT Condition: Stable
[2022-05-05] MEDS ORDERED: MAGNESIUM HYDROXIDE 2,400 MG/10 ML CUP PO PRN (18:20)
[2022-05-05] MEDS ORDERED: HALOPERIDOL LACTATE 5 MG/ML 1 ML VIAL IM PRN (18:20)
[2022-05-05] MEDS ORDERED: MAG HYDROX/AL HYDROX/SIMETH 30 ML CUP PO PRN (18:20)
[2022-05-05] MEDS ORDERED: haloperidoL 5 MG TAB PO PRN (18:22)
[2022-05-05] MEDS ORDERED: hydrOXYzine pamoate 25 MG CAP PO PRN (18:22)
[2022-05-05] MEDS ORDERED: hydrOXYzine HCL 50 MG/ML 1 ML VIAL IM PRN (18:22)
[2022-05-05] MEDS: ACETAMINOPHEN TAB 325 MG TAB PO PRN (18:53)
[2022-05-05] MEDS: amLODIPine 10 MG TAB PO SCH (18:54)
[2022-05-05] MEDS: chlordiazePOXIDE 25 MG CAP PO SCH (22:03)
[2022-05-06] MEDS: LEVOTHYROXINE 125 MCG TAB PO SCH (06:01)
[2022-05-06] MEDS: NICOTINE 14MG/24HR PATCH TRANSDERM SCH (07:43)
[2022-05-06] MEDS: ACETAMINOPHEN TAB 325 MG TAB PO PRN ×2 (07:45→16:40)
[2022-05-06] MEDS: chlordiazePOXIDE 25 MG CAP PO SCH ×3 (07:45→21:13)
[2022-05-06] MEDS: amLODIPine 10 MG TAB PO SCH (07:45)
--- NOTE | 2022-05-06 11:10 | P.HP ---
Psychiatric H&P - . H&P Date: 05/06/22 History & Physical: Allergies Allergy/AdvReac Type Severity Reaction Status Date / Time No Known Allergies Allergy Verified 05/05/22 11:31 Vital Signs Temp 98.4 F 05/06/22 06:35 Pulse 72 05/06/22 07:47 Resp 18 05/06/22 06:35 BP 155/92 05/06/22 07:47 Pulse Ox 97 05/06/22 06:35 FiO2 Intake & Output 05/05/22 05/06/22 05/06/22 18:59 06:59 18:59 Weight 107.002 kg Laboratory Last Values Urine Color Yellow 05/05/22 11:01 Urine Appearance Clear (Clear) 05/05/22 11:01 Urine pH 6.0 (5.0-8.0) 05/05/22 11:01 Ur Specific [place] 1.019 (1.001-1.035) 05/05/22 11:01 Urine Protein Trace (Negative) H 05/05/22 11:01 Urine Glucose (UA) Negative (Negative) 05/05/22 11:01 Urine Ketones Negative (Negative) 05/05/22 11:01 Urine Blood Small (Negative) H 05/05/22 11:01 Urine Nitrite Negative (Negative) 05/05/22 11:01 Urine Bilirubin Negative (Negative) 05/05/22 11:01 Urine Urobilinogen <2.0 mg/dL (<2.0) 05/05/22 11:01 Ur Leukocyte Esterase Trace (Negative) H 05/05/22 11:01 Urine RBC 4 /hpf (0-5) 05/05/22 11:01 Urine WBC 6 /hpf (0-5) H 05/05/22 11:01 Ur Squamous Epith Cells 3 /hpf (0-4) 05/05/22 11:01 Urine Mucus Rare /hpf (None) H 05/05/22 11:01 Urine Opiates Screen Not Detected (NotDetected) 05/05/22 11:01 Ur Oxycodone Screen Not Detected (NotDetected) 05/05/22 11:01 Urine Methadone Screen Not Detected (NotDetected) 05/05/22 11:01 Ur Propoxyphene Screen Not Detected (NotDetected) 05/05/22 11:01 Ur Barbiturates Screen Not Detected (NotDetected) 05/05/22 11:01 U Tricyclic Antidepress Not Detected (NotDetected) 05/05/22 11:01 Ur Phencyclidine Scrn Not Detected (NotDetected) 05/05/22 11:01 Ur Amphetamines Screen Not Detected (NotDetected) 05/05/22 11:01 U Methamphetamines Scrn Detected (NotDetected) H 05/05/22 11:01 U Benzodiazepines Scrn Not Detected (NotDetected) 05/05/22 11:01 Urine Cocaine Screen Detected (NotDetected) H 05/05/22 11:01 U Marijuana (THC) Screen Not Detected (NotDetected) 05/05/22 11:01 Coronavirus (PCR) Not Detected (Not Detectd) 05/05/22 14:49 05/06/22 10:42 IDENTIFYING DATA: Patient is a 62-year-old -Salvadorean male currently homeless has 3 kids unemployed. HPI: Patient presented to the hospital yesterday in the ER complaining of feeling suicidal wanting to jump in front of cars. Patient has admitted that he was using alcohol and cocaine and also tested positive on his urine drug screen for methamphetamine and cocaine. Patient was seen today in agreeable to speak to fiction and nonfiction prose writer. Patient was holding his hip and back in pain. He spoke about feeling suicidal for the past 2 weeks or so. He claims that he recently became homeless in August of this past year. He states that he was feeling like he wanted to jump in front of cars to end his life. He states that "I have nothing" and spoke about financial problems. He claims that he also has significant back pain associated with an injury on his previous job at the [employer]. He claims that he had to turn to drugs to help him with the pain control "that was the only thing that helped me but now I'm suicidal". He states that he is still feeling suicidal thoughts however has no intent or plan. He claims that he has no homicidal ideations today. Poor sleep and poor appetite. He is only admitting to minor alcohol withdrawal symptoms at this time and is taking Librium. He states that he is using cocaine daily and states that "it's laced with methamphetamine" and also smokes cigarettes daily. He states that he drinks approximately 8 cans of beer a day. At this time patient denies any auditory or visual hallucinations. Patient denies any flight of ideas racing thoughts and increased in goal directed behavior. PAST PSYCHIATRIC HISTORY: Patient states that he has a history of depression and polysubstance abuse. Patient used to be on Prozac and trazodone in the past however stopped taking his medications. The patient was previously psychi atrically hospitalized in August 2020. Patient was supposed to follow up with [facility] however did not do this. Patient denies any history of suicide attempts in the past. PMH:Asthma, Hypertension ALLERGIES: as per EMR CHEMICAL DEPENDENCY HISTORY: as per HPI FAMILY PSYCHIATRIC/SUBSTANCE USE HISTORY: denies SOCIAL HISTORY: Patient was born and raised in [place] and moved to [place] when he was younger. The patient claims that he completed high school and did some college. He states that he did go to custodial several years ago for drug related charges. 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 He is currently homeless has 3 kids. MENTAL STATUS EXAM: General Appearance: Patient appears to be tall, -[place]vadorean male, stated age is alert, irritable yet directable. Patient appears to have poor hygiene and grooming. Behavior: Patient is seated without any agitated behavior. Irritable. Speech: Patient's speech is fluent and nonpressured. Mood/Affect: Patient reports their mood is depressed, affect is congruent and constricted. Suicidality/Homicidality: Patient denies having any homicidal ideation intent or plan. He admits to ongoing suicidal thoughts, no intent or plan. Perceptions: Patient denies any visual hallucinations and denies any auditory hallucinations Though content/process: There is no evidence of any delusional thought content and thought process is linear and goal-directed. Focused on his pain. Memory and concentration: AOX3, grossly intact for the purposes of this session. Can spell "WORLD" backwards Judgment and insight: poor STRENGTHS/WEAKNESSES: strength is that patient is resilient. Weakness is that patient has poor judgment and is impulsive INTELLECT: average IMPRESSIONS: Major depressive disorder, without psychotic features Alcohol use disorder severe Cocaine use disorder Methamphetamine use disorder He continued dependence PLAN: -Patient is admitted under voluntary status to MHU for stabilization of ps ychiatric symptoms and safety. Patient has signed adult voluntary form and medication consent and is placed in patient's chart. -Medications : Will start patient on Cymbalta 20 mg daily for mood/anxiety/pain. Continue with Librium 25 mg 3 times a day for withdrawal. -Ativan and Haldol PRN for agitation/aggression -Started MVM for etoh use -CIWA protocol with Ativan PRN for ETOH withdrawal -Patient was counselled on substance abuse and desired to cut back on use -Patient was informed of the risks, benefits and side effects of the medication and patient verbally consented to taking the medications. Patient signed med consent form and was placed in chart. -Internal Medicine consult to perform medical evaluation and physical. -NRT - nicotine patch -SW on board for discharge planning. Encourage patient to participate in groups to work on coping skills. He claims that he is interested in going to [place] for substance use rehab. 05/06/22 11:17
[2022-05-06] MEDS: IBUPROFEN 600 MG TAB PO PRN ×2 (11:59→21:11)
[2022-05-06] MEDS: MULTIVITAMINS, THERA 1 EACH TAB PO SCH (12:00)
[2022-05-06] MEDS: DULoxetine HCL 20 MG CAPSULE.DR PO SCH (12:00)
--- NOTE | 2022-05-07 02:18 | P.CONS ---
History of Present Illness - History of Present Illness This is a pleasant 62 years old -Russian male with past medical history of asthma, hypertension, hypothyroidism, history of fall from a height with lower back injury and chronic low back pain with no new or significant neurological deficit. Patient was admitted to the mental health unit for depression Medical consult has been requested for routine medical management. Patient was lying in bed who refused to cooperate in the beginning and then he agrees to answer my questions and to examination. Patient complaining of from chronic low back pain for several months, weakness or loss of sensation in the lower extremities no saddle anesthesia. No other complaints, he denies chest pain or dyspnea. No abdominal pain or vomiting or diarrhea. No fever. Vitas looks stable, blood pressure is slightly elevated with systolic BP 150- 180. Patient is afebrile. Labs available in the system including urine analysis which is not suspicious for infection. An entrapped screen is positive for methamphetamine and cocaine covid infection without pneumonia. Past Medical History Past Medical History: Asthma, Hypertension History of Any Multi-Drug Resistant Organisms: None Reported Past Surgical History: No Surgical Hx Reported Past Anesthesia/Blood Transfusion Reactions: No Reported Reaction Past Psychological History: Depression Smoking Status: Current every day smoker Past Alcohol Use History: Daily, Heavy Past Drug Use History: Cocaine Medications and Allergies Home Medications Medication Instructions Recorded Confirmed Type amLODIPine [Norvasc] 10 mg PO DAILY 30 Days tab 08/29/20 05/05/22 Rx Levothyroxine Sodium [Synthroid] 125 mcg PO DAILY 05/05/22 05/05/22 History Allergies Allergy/AdvReac Type Severity Reaction Status Date / Time No Known Allergies Allergy Verified 05/05/22 11:31 Physical Exam Vitals: Vital Signs Temp Pulse Resp BP Pulse Ox 05/06/22 16:42 85 145/90 05/06/22 07:47 72 155/92 05/06/22 06:35 98.4 F 63 18 176/92 97 GENERAL: The patient is alert and oriented x3, not in any acute distress. Well developed, well nourished. HEENT: Pupils are round and equally reacting to light. EOMI. No scleral icterus. No conjunctival pallor. Normocephalic, atraumatic. No pharyngeal erythema. No thyromegaly. CARDIOVASCULAR: S1 and S2 present. No murmurs, rubs, or gallops. PULMONARY: Chest is clear to auscultation, no wheezing or crackles. ABDOMEN: Soft, nontender, nondistended, normoactive bowel sounds. No palpable organomegaly. MUSCULOSKELETAL: No joint swelling or deformity. EXTREMITIES: No cyanosis, clubbing, or pedal edema. NEUROLOGICAL: Gross neurological examination did not reveal any focal deficits. SKIN: No rashes. no petechiae. Assessment and Plan Assessment: -Depression and other psychiatric illnesses, management as per sec primary team -Alcohol use disorder severe -Cocaine use disorder and Methamphetamine use disorder, patient was instructed to avoid stimulants and illicit substance, risks and benefits are explained for him, he does not look interested in quitting -Asthma, not an active issue -Hypertension: Continue with same medication -hypothyroidism: Continue with hormone replacement therapy -Chronic low back pain with no loss of function, continue with pain management. Try to avoid narcotics We recommend patient follow up with PCP in one week after discharge and was instructed with the same Thank you for consulting us, Patricia free to contact for any further question
[2022-05-07] MEDS: LEVOTHYROXINE 125 MCG TAB PO SCH (06:10)
[2022-05-07] MEDS: chlordiazePOXIDE 25 MG CAP PO SCH ×3 (06:44→21:53)
[2022-05-07] MEDS: amLODIPine 10 MG TAB PO SCH (06:44)
[2022-05-07] MEDS: MULTIVITAMINS, THERA 1 EACH TAB PO SCH (10:37)
[2022-05-07] MEDS: NICOTINE 14MG/24HR PATCH TRANSDERM SCH (10:37)
[2022-05-07] MEDS: DULoxetine HCL 20 MG CAPSULE.DR PO SCH (10:37)
[2022-05-07] MEDS: IBUPROFEN 600 MG TAB PO PRN (12:54)
--- NOTE | 2022-05-07 15:55 | P.PN ---
Progress Note - Text Progress Note Date: 05/07/22 Interval History: Patient was seen wandering the hallways and was directable and agreeable to speak with advertising copywriter in the office. He reports feeling "horrible" because he is "thinking about killing myself" and that he's been up for a month straight using drugs. He reports no improvement in how he feels today as compared to yesterday. He is not attending groups, due to being very sleepy after being awake for almost a month from doing drugs. He derails easily in conversation, reports he is homeless, was doing cocaine that he didn't know was laced with methamphetamines. He denies homicidal ideations. He admits to suicidal ideations, "of course, that's why I came here." His answers appear somewhat evasive. Patient denies any auditory or visual hallucinations, and denies any paranoia or delusions. Patient denies any side effects from the medications and has been compliant with meds. Vitals reviewed and BP was elevated at 173/102. Heart rate is stable and no overt features of uncontrolled alcohol withdrawal. Mental Status Exam: General Appearance: Patient appears to be stated age, is dressed in casual sweats. Orientation: He is alert and oriented to person, place, time. Behavior: Patient is calmly seated without any agitated behavior. Speech: Patient's speech is fluent and nonpressured. Mood/Affect: Mood is "horrible", affect is congruent. Suicidality/Homicidality: Patient denies having any suicidal or homicidal ideation intent or plan. Perceptions: Patient denies any visual hallucinations and denies any auditory hallucinations. Though content/process: There is no evidence of any delusional thought content, and thought process is evasive with frequent derailing. Memory and concentration: Grossly intact for the purposes of this session Judgment and insight: Poor Vital Signs - 24 hr 05/06/22 05/07/22 16:42 06:27 Temperature 97.9 F Pulse Rate [ 85 65 Pulse Oximetery ] Respiratory 18 Rate Blood Pressure 145/90 173/102 [Left Arm] O2 Sat by Pulse 99 Oximetry IMPRESSIONS: Major depressive disorder, without psychotic features Alcohol use disorder severe Cocaine use disorder Methamphetamine use disorder Plan: -Patient continues to meet criteria for inpatient psychiatric admission for symptom stabilization and safety. Patient has not signed adult voluntary form and medication consent and was placed in patient's chart. -Medications: Continue medications at current dosages. CIWA protocol with Ativan PRN for ETOH withdrawal. -When necessary Ativan and Haldol for agitation/aggression. - Monitor vitals and follow-up with medical doctor for elevated blood pressure. -NRT - nicotine patch -SW on board for discharge planning. Encouraged the patient to participate in milieu.
[2022-05-08] MEDS: LEVOTHYROXINE 125 MCG TAB PO SCH ×2 (06:48→09:13)
--- NOTE | 2022-05-08 08:49 | P.PN ---
Progress Note - Text Progress Note Date: 05/08/22 Interval History: Patient was seen today laying in his bed and was directable and agreeable to s peak with newspaper writer in the office. Patient continues to be irritable and argumentative with newspaper writer. He continues to be annoyed with questions from newspaper writer and continues to catastrophize his situation. He states that he is still feeling better continues to remain depressed and anxious. He states that he is still going through withdrawal symptoms however was fairly vague about what they are. He insists that he took the medication yesterday Cymbalta however according to an ER it was documented that he did not. He adamantly refused to go up on the Cymbalta today and wanted to stay at 20 mg. He states that he slept fairly last night. He claims that he continues to need time to rest and has been disinterested in groups. Continues to state that he wants to go to rehab. At this time patient denies any homical ideations, intent or plan. He claims that he is still having suicidal thoughts however no intent or plan. Patient denies any auditory, visual hallucinations and denies any paranoia or delusions. Patient denies any side effects from the medications and has been compliant with meds. Mental Status Exam: General Appearance: Patient appears to be tall, -Barb[place] male, stated age is alert, irritable yet directable. Patient appears to have poor hygiene and grooming. Behavior: Patient is seated without any agitated behavior. Irritable. Speech: Patient's speech is fluent and nonpressured. Mood/Affect: Patient reports their mood is depressed anxiety, affect is congruent and constricted Suicidality/Homicidality: Patient denies having any homicidal ideation intent or plan. He admits to ongoing suicidal thoughts, no intent or plan. Perceptions: Patient denies any visual hallucinations and denies any auditory hallucinations Though content/process: There is no evidence of any delusional thought content and thought process is linear and goal-directed. catastrophizing. argumentative Memory and concentration: AOX3, grossly intact for the purposes of this session Judgment and insight: poor, improving midlly IMPRESSIONS: Major depressive disorder, without psychotic features Alcohol use disorder severe Cocaine use disorder Methamphetamine use disorder He continued dependence Plan: -Patient continues to meet criteria for inpatient psychiatric admission for symptom stabilization and safety. Patient has signed adult voluntary form and medication consent and was placed in patient's chart. -Medications: Continue Cymbalta 20 mg daily for mood/anxiety/pain, Librium decreased down to 20 mg 3 times a day for withdrawal. -MVM for etoh use -CIWA protocol with Ativan PRN for ETOH withdrawal -When necessary Ativan and Haldol for agitation/aggression. -NRT - nicotine patch -SW on board for discharge planning. Encouraged the patient to participate in milieu. He claims that he is interested in going to [place] for substance use rehab. likely discharge eaerly next week.
[2022-05-08] MEDS ORDERED: DULoxetine HCL 30 MG CAPSULE.DR PO SCH (09:00)
[2022-05-08] MEDS: NICOTINE 14MG/24HR PATCH TRANSDERM SCH (09:11)
[2022-05-08] MEDS: amLODIPine 10 MG TAB PO SCH (09:13)
[2022-05-08] MEDS: MULTIVITAMINS, THERA 1 EACH TAB PO SCH (09:13)
[2022-05-08] MEDS: DULoxetine HCL 20 MG CAPSULE.DR PO SCH (09:13)
[2022-05-08] MEDS: IBUPROFEN 600 MG TAB PO PRN (20:38)
[2022-05-09] MEDS: IBUPROFEN 600 MG TAB PO PRN ×2 (06:00→17:17)
[2022-05-09] MEDS: amLODIPine 10 MG TAB PO SCH (10:23)
[2022-05-09] MEDS: MULTIVITAMINS, THERA 1 EACH TAB PO SCH (10:24)
[2022-05-09] MEDS: NICOTINE 14MG/24HR PATCH TRANSDERM SCH (10:24)
[2022-05-09] MEDS: DULoxetine HCL 20 MG CAPSULE.DR PO SCH (10:24)
--- NOTE | 2022-05-09 17:05 | P.PN ---
Progress Note - Text Progress Note Date: 05/09/22 Interval History: Patient was seen today laying in his bed and was directable and agreeable to sp jesús with copy writer in the office. Patient presents with improved energy, motivation and mood. He denies depressed mood, reports he is "always anxious", but objectively appears relaxed. He is medication compliant but denies medication side effects, except for oversedation from the Librium and feels the 20 mg is too much and requests for it to be decreased to 10 mg. He reports good sleep and good appetite. He reports he is a nice pau except for when he is using drugs. He states his drug of choice is cocaine and alcohol. He states he is looking forward to going to rehab, and changes the topic to wanting to get in touch with his daughter. At this time patient denies any homicidal, intent or plan. He endorses vague suicidal ideations that are getting better, without plan or intent. Patient denies any auditory, visual hallucinations and denies any paranoia or delusions. Mental Status Exam: General Appearance: Patient appears to be tall, -[place]uvian male, stated age with fair hygiene. Orientation: Alert, oriented to person, place, time and situation. Behavior: Patient is seated without any agitated behavior, has some irritable edge. Speech: Patient's speech is fluent and non-pressured. Mood/Affect: Patient reports his mood is "better today", affect is congruent and constricted. Suicidality/Homicidality: Patient denies having any homicidal ideation intent or plan. He admits to vague suicidal thoughts, no intent or plan. Perceptions: Patient denies any visual hallucinations and denies any auditory hallucinations Though content/process: There is no evidence of any delusional thought content and thought process is linear and goal-directed. catastrophizing. argumentative Memory and concentration: Grossly intact for the purposes of this session Judgment and insight: poor, improving midlly IMPRESSIONS: Major depressive disorder, without psychotic features Alcohol use disorder severe Cocaine use disorder Methamphetamine use disorder Plan: -Patient continues to meet criteria for inpatient psychiatric admission for symptom stabilization and safety. Patient has signed adult voluntary form and medication consent and was placed in patient's chart. -Medications: Increase Cymbalta to 30 mg daily for mood/anxiety/pain. Decrease Librium to 10 mg twice daily for alcohol withdrawal. -MVM for etoh use -CIWA protocol with Ativan PRN for ETOH withdrawal -When necessary Ativan and Haldol for agitation/aggression. -NRT - nicotine patch -SW on board for discharge planning. Encouraged the patient to participate in milieu. He claims that he is interested in going to [place] for substance use rehab. likely discharge eaerly next week.
[2022-05-09] MEDS: ACETAMINOPHEN TAB 325 MG TAB PO PRN (20:22)
[2022-05-10] MEDS: LEVOTHYROXINE 125 MCG TAB PO SCH (06:42)
[2022-05-10] MEDS: amLODIPine 10 MG TAB PO SCH (08:29)
[2022-05-10] MEDS: IBUPROFEN 600 MG TAB PO PRN ×3 (08:29→21:55)
[2022-05-10] MEDS: MULTIVITAMINS, THERA 1 EACH TAB PO SCH (08:30)
[2022-05-10] MEDS: NICOTINE 14MG/24HR PATCH TRANSDERM SCH (08:30)
[2022-05-10] MEDS ORDERED: DULoxetine HCL 30 MG CAPSULE.DR PO SCH (09:00)
--- NOTE | 2022-05-10 21:10 | P.PN ---
Progress Note - Text Progress Note Date: 05/10/22 Interval History: Patient was seen today laying in his bed and was directable and agreeable to sp jesús with entry writer in the office. Patient reports he stopped taking the medications today because he was feeling like it was "too strong". Patient presents with improved energy, motivation and mood. He denies depressed mood. He is argumentative and antagonistic. He states he likes to be in charge of his treatment, decide which medications to take and at which dosage. He reports good sleep and good appetite. He is intersted in outpatient substance abuse treatment. At this time patient denies any homicidal, intent or plan. He endorses vague suicidal ideations, denies plan or intent. Patient denies any auditory, visual hallucinations and denies any paranoia or delusions. Vital signs are stable and there are currently no signs of alcohol withdrawal. Mental Status Exam: General Appearance: Patient appears to be tall, -Kyrgy[place] male, stated age with fair hygiene. Orientation: Alert, oriented to person, place, time and situation. Behavior: Patient is seated without any agitated behavior, has some irritable edge. Speech: Patient's speech is fluent and non-pressured. Mood/Affect: Patient reports his mood is "better today", affect is congruent and constricted. Suicidality/Homicidality: Patient denies having any homicidal ideation intent or plan. He admits to vague suicidal thoughts, no intent or plan. Perceptions: Patient denies any visual hallucinations and denies any auditory hallucinations Though content/process: There is no evidence of any delusional thought content and thought process is linear and goal-directed. catastrophizing. argumentative Memory and concentration: Grossly intact for the purposes of this session Judgment and insight: poor, improving midlly Vital Signs (72 hours) 05/08/22 05/09/22 05/09/22 06:49 06:30 20:21 Temperature 98.2 F 96.5 F L Pulse Rate [ 61 77 85 Pulse Oximetery ] Respiratory 16 16 Rate Blood Pressure 130/76 136/83 151/86 [Left Arm] 05/10/22 06:49 Temperature 97 F L Pulse Rate [ 60 Pulse Oximetery ] Respiratory 16 Rate Blood Pressure 124/82 [Left Arm] IMPRESSIONS: Major depressive disorder, without psychotic features Alcohol use disorder severe Alcohol withdrawal, resolved. Cocaine use disorder Methamphetamine use disorder Plan: -Patient continues to meet criteria for inpatient psychiatric admission for symptom stabilization and safety. Patient has signed adult voluntary form and medication consent and was placed in patient's chart. -Medications: Decrease Cymbalta back to 20 mg daily for mood/anxiety/pain per patient request. Discontinue Librium - he has refused the last 2 doses and currently there are no signs of alcohol withdrawal. He would like to discharge to a residential substance abuse treatment program. -MVM for Etoh use -When necessary Ativan and Haldol for agitation/aggression. -NRT - nicotine patch -SW on board for discharge planning. Encouraged the patient to participate in milieu. He claims that he is interested in going to [place] for substance use rehab. likely discharge eaerly next week.
[2022-05-10] MEDS: DULoxetine HCL 20 MG CAPSULE.DR PO SCH (21:54)
[2022-05-10] MEDS: ACETAMINOPHEN TAB 325 MG TAB PO PRN (21:55)
[2022-05-11] MEDS: LEVOTHYROXINE 125 MCG TAB PO SCH (06:32)
[2022-05-11] MEDS: MULTIVITAMINS, THERA 1 EACH TAB PO SCH (09:51)
[2022-05-11] MEDS: amLODIPine 10 MG TAB PO SCH (09:51)
[2022-05-11] MEDS: NICOTINE 14MG/24HR PATCH TRANSDERM SCH (09:51)
[2022-05-11] MEDS: DULoxetine HCL 20 MG CAPSULE.DR PO SCH (09:51)
[2022-05-11] MEDS ORDERED: MELATONIN 3 MG TABLET PO PRN (10:02)
--- NOTE | 2022-05-11 10:05 | P.PN ---
Progress Note - Text Progress Note Date: 05/11/22 Interval History: Patient was seen today laying in his bed and was directable and agreeable to s peak with pattern chart writer. He claims that he was feeling "a bit wobbly" yesterday however states that he is doing better on medications. He states that his depression and anxiety even improving. He wants to remain on the same medications and does not want to go up on the dose. He states that he did have some difficulties with sleep last night however is trying to sleep this morning. He had the sticky note for the number for the access line however claims that "I haven't had a chance to call them" and states that he will call them tomorrow. He appeared to be disinterested in going to groups today. He claims that he is eating fairly.. At this time patient denies any homical or suicidal ideations, intent or plan. Patient denies any auditory, visual hallucinations and denies any paranoia or delusions. Patient denies any side effects from the medications and has been compliant with meds. Mental Status Exam: General Appearance: Patient appears to be tall, -[place] male, stated age is alert, more directable today. Patient appears to have improving hygiene and grooming. Behavior: Patient is seated without any agitated behavior. Less irritable Speech: Patient's speech is fluent and nonpressured. Mood/Affect: Patient reports their mood is depressed anxiety, affect is congruent and constricted Suicidality/Homicidality: Patient denies having any homicidal ideation intent or plan. He denies any suicidal thoughts, no intent or plan. Perceptions: Patient denies any visual hallucinations and denies any auditory hallucinations Though content/process: There is no evidence of any delusional thought content and thought process is linear and goal-directed. less argumentative Memory and concentration: AOX3, grossly intact for the purposes of this session Judgment and insight: poor, improving midlly IMPRESSIONS: Major depressive disorder, without psychotic features Alcohol use disorder severe Cocaine use disorder Methamphetamine use disorder He continued dependence Plan: -Patient continues to meet criteria for inpatient psychiatric admission for symptom stabilization and safety. Patient has signed adult voluntary form and medication consent and was placed in patient's chart. -Medications: Continue Cymbalta 20 mg daily for mood/anxiety/pain, added melatonin prn for sleep. Vistaril prn for anxiety. -MVM for etoh use -When necessary Ativan and Haldol for agitation/aggression. -NRT - nicotine patch -SW on board for discharge planning. Encouraged the patient to participate in milieu. He claims that he is interested in going to [place] for substance use rehab however continues to state that he has not made the call to rehab. Likely discharge tomorrow.
[2022-05-11] MEDS: IBUPROFEN 600 MG TAB PO PRN (16:27)
[2022-05-12] MEDS: LEVOTHYROXINE 125 MCG TAB PO SCH (06:27)
[2022-05-12] MEDS: amLODIPine 10 MG TAB PO SCH ×2 (10:11→10:14)
[2022-05-12] MEDS: MULTIVITAMINS, THERA 1 EACH TAB PO SCH ×2 (10:11→10:16)
[2022-05-12] MEDS: DULoxetine HCL 20 MG CAPSULE.DR PO SCH ×2 (10:11→10:14)
[2022-05-12] MEDS: NICOTINE 14MG/24HR PATCH TRANSDERM SCH (10:14)
--- NOTE | 2022-05-12 10:34 | P.PN ---
Progress Note - Text Progress Note Date: 05/12/22 Interval History: Patient was seen today laying in his bed and was directable and agreeable to s peak with copy writer. Patient was somewhat irritable today with copy writer's however did state that he is feeling better with the medications. He claims that he is slowly improving in terms his mood and anxiety. He states that he feels the medications have been helping him overall and is trying to remain positive. He did speak with copy writer in a condescending tone and threatened to sign AMA. He states that "I can stay or I can go" and claims that he does want to go to rehab still. He states that he has not made the call to the access line to get into rehab however came that he still wants to go. He was somewhat manipulative and demanding today with copy writer and walks out of the interview early. He claims that he is eating fairly.. At this time patient denies any homical or suicidal ideations, intent or plan. Patient denies any auditory, visual hallucinations and denies any paranoia or delusions. Patient denies any side effects from the medications and has been compliant with meds. Mental Status Exam: General Appearance: Patient appears to be tall, -German male, stated age is alert, more directable today. Patient appears to have improving hygiene and grooming. Behavior: Patient is seated without any agitated behavior. Less irritable. Demanding. Speech: Patient's speech is fluent and nonpressured. Mood/Affect: Patient reports their mood is improving, affect is congruent and constricted Suicidality/Homicidality: Patient denies having any homicidal ideation intent or plan. He denies any suicidal thoughts, no intent or plan. Perceptions: Patient denies any visual hallucinations and denies any auditory hallucinations Though content/process: There is no evidence of any delusional thought content and thought process is linear and goal-directed. Memory and concentration: AOX3, grossly intact for the purposes of this session Judgment and insight: improving midlly IMPRESSIONS: Major depressive disorder, without psychotic features Alcohol use disorder severe Cocaine use disorder Methamphetamine use disorder nicotine dependence Plan: -Patient continues to meet criteria for inpatient psychiatric admission for symptom stabilization and safety. Patient has signed adult voluntary form and medication consent and was placed in patient's chart. -Medications: Continue Cymbalta 20 mg daily for mood/anxiety/pain, melatonin prn for sleep. Vistaril prn for anxiety. -MVM for etoh use -When necessary Ativan and Haldol for agitation/aggression. -NRT - nicotine patch -SW on board for discharge planning. Encouraged the patient to participate in milieu. He claims that he is interested in going to [place] for substance use rehab. Patient was instructed to make a call today to the access line and will be sending day packet for review today. Likely discharge tomorrow.
[2022-05-13] MEDS: LEVOTHYROXINE 125 MCG TAB PO SCH (06:23)
[2022-05-13 07:22] VITALS: BP 148/87; PULSE 64; RESP 14; TEMP 98.4
[2022-05-13] MEDS: NICOTINE 14MG/24HR PATCH TRANSDERM SCH (09:14)
[2022-05-13] MEDS: DULoxetine HCL 20 MG CAPSULE.DR PO SCH (09:14)
[2022-05-13] MEDS: MULTIVITAMINS, THERA 1 EACH TAB PO SCH (09:14)
[2022-05-13] MEDS: amLODIPine 10 MG TAB PO SCH (09:14)
[2022-05-13] MEDS: IBUPROFEN 600 MG TAB PO PRN (09:15)
--- NOTE | 2022-05-13 11:11 | P.DS ---
Providers Date of admission: 05/05/22 17:09 Expected date of discharge: 05/13/22 Attending physician: Gustavo Franco MD Consults: 05/05/22 18:20 Consult Physician Routine Consulting Provider: Rafael Mahajan Consult Reason/Comments: H&P and medical Do you want consulting provider notified?: Yes Primary care physician: Michelle Jaeger - Discharge Diagnosis(es) (1) Major depressive disorder without psychotic features Current Visit: Yes Status: Acute Priority: High (2) Alcohol use disorder, severe, dependence Current Visit: Yes Status: Acute Priority: High (3) Cocaine use disorder Current Visit: Yes Status: Acute Priority: High (4) Methamphetamine use disorder, moderate Current Visit: Yes Status: Acute Priority: High (5) Nicotine dependence Current Visit: Yes Status: Acute Priority: Low Hospital Course: Admission HPI: Admission note was completed by selling underwriter "Patient is a 62-year-old - British male currently homeless has 3 kids unemployed. Patient presented to the hospital yesterday in the ER complaining of feeling suicidal wanting to jump in front of cars. Patient has admitted that he was using alcohol and cocaine and also tested positive on his urine drug screen for methamphetamine and cocaine. Patient was seen today in agreeable to speak to selling underwriter. Patient was holding his hip and back in pain. He spoke about feeling suicidal for the past 2 weeks or so. He claims that he recently became homeless in August of this past year. He states that he was feeling like he wanted to jump in front of cars to end his life. He states that "I have nothing" and spoke about financial problems. He claims that he also has significant back pain associated with an injury on his previous job at the [email or web address]. He claims that he had to turn to drugs to help him with the pain control "that was the only thing that helped me but now I'm suicidal". He states that he is still feeling suicidal thoughts however has no intent or plan. He claims that he has no homicidal ideations today. Poor sleep and poor appetite. He is only admitting to minor alcohol withdrawal sym ptoms at this time and is taking Librium. He states that he is using cocaine daily and states that "it's laced with methamphetamine" and also smokes cigarettes daily. He states that he drinks approximately 8 cans of beer a day. At this time patient denies any auditory or visual hallucinations. Patient denies any flight of ideas racing thoughts and increased in goal directed behavior." Hospital course: Upon admission to the unit patient was directable and agreeable to commence treatment and signed adult voluntary form. Patient got along well with other patients on the unit and followed unit protocol. Patient was compliant with the medications and denied any side effects throughout hospital course. Patient was started on Cymbalta 20 mg daily for mood/anxiety/pain, melatonin when necessary for sleep, and Vistaril when necessary for anxiety. Patient spoke of his stressors. Patient mainly isolated in his room during his hospitalization and was notoed to be sleeping and refusing to participate in activities and melieu. Patient was also seen by medical team for history and physical exam. Throughout the course of the hospitalization patient gradually improved with regards to mood, anxiety, sleep and returned back to their baseline level of functioning. On the day of discharge patient denied any suicidal or homicidal ideations intent or plan denied any auditory or visual hallucinations. Patient endorsed wanting to live for his health and sobriety. The patient denied any access to guns or weapons. Patient denied any paranoia and did not endorse any delusions. Patient does have a significant history of substance abuse and was counseled on abstaining from all substances including alcohol and marijuana. Patient was given the number for the access line and called them for rehab and guarded and intake appointment on 05/18 at [facility]. Patient will be discharged today to his daughter's house. Patient was also counseled on the medications and need for regular compliance and was encouraged to follow-up with their outpatient appointment for mental health and also for primary care. Prior to discharge a family meeting will be arranged by psychiatric social worker supervisor to answer any questions and ensure safety upon discharge. Mental status exam: General Appearance: Patient appears to be tall, bald, stated age is alert, pleasant, and tends to be cooperative. Patient is in no acute distress and has improved hygiene and grooming Behavior: Patient is calmly seated without any agitated behavior. Speech: Patient's speech is fluent and nonpressured. Mood/Affect: Patient reports their mood is "alright", affect is congruent and constricted Suicidality/Homicidality: Patient denies having any suicidal or homicidal ideation intent or plan. Perceptions: Patient denies any auditory or visual hallucinations. Though content/process: There is no evidence of any delusional thought content and thought process is linear and goal-directed. [place] Memory and concentration: AOX3, grossly intact for the purposes of this session. Can spell "WORLD" backwards correctly. Judgment and insight: chronically poor, however has improved with guarded prognosis Impression: Major depressive disorder, without psychotic features Alcohol use disorder severe Cocaine use disorder Methamphetamine use disorder moderate Nicotine dependence Plan: -Continue with discharge today as patient has improved and stabilized psychiatrically and is not currently an imminent threat to himself and/or others. Patient will remain at chronically elevated risk for harm to self and/or others due to his impulsivity and polysubstance abuse. -Continue medications: Cymbalta 20 mg daily for mood/anxiety/pain. -Patient was counseled on the need for medication compliance and appropriate follow-up at mental health and also primary care for medical issues. Patient verbalized understanding and agreed. -Social work to arrange for and conduct family meeting to ensure safety upon discharge and answer any questions/concerns. Social work also to arrange for patients follow up appointments with [facility] for psychiatric care along with follow up with primary care provider. -Patient counseled on abstaining from recreational drugs and marijuana and alcohol. Was informed/educated on the adverse effects on their physical and mental health. Patient verbally agreed and understood. Patient will be going to [facility] for his intake on 05/18. -Patient was instructed to return to the hospital or seek immediate medical care if their psychiatric or medical symptoms do worsen or reoccur. Allergies Allergy/AdvReac Type Severity Reaction Status Date / Time No Known Allergies Allergy Verified 05/05/22 11:31 Laboratory Results Urine Color Yellow 05/05/22 11:01 Urine Appearance Clear (Clear) 05/05/22 11:01 Urine pH 6.0 (5.0-8.0) 05/05/22 11:01 Ur Specific [place] 1.019 (1.001-1.035) 05/05/22 11:01 Urine Protein Trace (Negative) H 05/05/22 11:01 Urine Glucose (UA) Negative (Negative) 05/05/22 11:01 Urine Ketones Negative (Negative) 05/05/22 11:01 Urine Blood Small (Negative) H 05/05/22 11:01 Urine Nitrite Negative (Negative) 05/05/22 11:01 Urine Bilirubin Negative (Negative) 05/05/22 11:01 Urine Urobilinogen <2.0 mg/dL (<2.0) 05/05/22 11:01 Ur Leukocyte Esterase Trace (Negative) H 05/05/22 11:01 Urine RBC 4 /hpf (0-5) 05/05/22 11:01 Urine WBC 6 /hpf (0-5) H 05/05/22 11:01 Ur Squamous Epith Cells 3 /hpf (0-4) 05/05/22 11:01 Urine Mucus Rare /hpf (None) H 05/05/22 11:01 Urine Opiates Screen Not Detected (NotDetected) 05/05/22 11:01 Ur Oxycodone Screen Not Detected (NotDetected) 05/05/22 11:01 Urine Methadone Screen Not Detected (NotDetected) 05/05/22 11:01 Ur Propoxyphene Screen Not Detected (NotDetected) 05/05/22 11:01 Ur Barbiturates Screen Not Detected (NotDetected) 05/05/22 11:01 U Tricyclic Antidepress Not Detected (NotDetected) 05/05/22 11:01 Ur Phencyclidine Scrn Not Detected (NotDetected) 05/05/22 11:01 Ur Amphetamines Screen Not Detected (NotDetected) 05/05/22 11:01 U Methamphetamines Scrn Detected (NotDetected) H 05/05/22 11:01 U Benzodiazepines Scrn Not Detected (NotDetected) 05/05/22 11:01 Urine Cocaine Screen Detected (NotDetected) H 05/05/22 11:01 U Marijuana (THC) Screen Not Detected (NotDetected) 05/05/22 11:01 Coronavirus (PCR) Not Detected (Not Detectd) 05/05/22 14:49 Vital Signs Temp 98.4 F 05/13/22 06:26 Pulse 64 05/13/22 06:26 Resp 14 05/13/22 06:26 BP 148/87 05/13/22 06:26 Pulse Ox 99 05/07/22 06:27 FiO2 Patient Condition at Discharge: Stable Plan - Discharge Summary New Discharge Prescriptions: New amLODIPine [Norvasc] 10 mg PO DAILY 30 Days tab Levothyroxine Sodium [Synthroid] 125 mcg PO DAILY@0630 30 Days tab DULoxetine HCL [Cymbalta] 20 mg PO DAILY 30 Days cap Nicotine 14Mg/24Hr Patch [Habitrol] 1 patch TRANSDERM DAILY 14 Days patch Ibuprofen [Motrin] 600 mg PO Q8H PRN tab PRN Reason: Moderate To Severe Pain Multivitamins, Thera [Multivitamin (formulary)] 1 each PO DAILY 30 Days tab Acetaminophen Tab [Tylenol] 650 mg PO Q4HR PRN tab PRN Reason: Pain/Discomfort Discontinued amLODIPine [Norvasc] 10 mg PO DAILY 30 Days tab Levothyroxine Sodium [Synthroid] 125 mcg PO DAILY Discharge Medication List Acetaminophen Tab [Tylenol] 650 mg PO Q4HR PRN tab 05/13/22 [Rx] DULoxetine HCL [Cymbalta] 20 mg PO DAILY 30 Days cap 05/13/22 [Rx] Ibuprofen [Motrin] 600 mg PO Q8H PRN tab 05/13/22 [Rx] Levothyroxine Sodium [Synthroid] 125 mcg PO DAILY@0630 30 Days tab 05/13/22 [Rx] Multivitamins, Thera [Multivitamin (formulary)] 1 each PO DAILY 30 Days tab 05/13/22 [Rx] Nicotine 14Mg/24Hr Patch [Habitrol] 1 patch TRANSDERM DAILY 14 Days patch 05/13/22 [Rx] amLODIPine [Norvasc] 10 mg PO DAILY 30 Days tab 05/13/22 [Rx] Follow up Appointment(s)/Referral(s): [facility] [Outside] - 05/18/22 9:00 am (with maintenance worker swimming pool) Michelle Jaeger MD [Primary Care Provider] - 1-2 days Patient Instructions/Handouts: How to Stop Smoking (DC), Depression (DC) Activity/Diet/Wound Care/Special Instructions: Avoid the use of street drugs and alcohol. Take all prescriptions as prescribed. When you are in need of refills on your medications, please contact your medical provider and/or outpatient psychiatrist to have this done. Please go to scheduled outpatient appointment for aftercare treatment. If symptoms return or become worse, call the crisis line at and/or go to the nearest emergency room for evaluation. Discharge Disposition: HOME SELF-CARE
== END 2022-05-13 12:18 | disposition home or self-care (01) | DRG 881 ==
LOC: EC 10:16 → 3MHU 17:09
PROVIDERS: ADMIT Psychiatry & Neurology Psychiatry; ATTEND Psychiatry & Neurology Psychiatry
DX: F32.9 Major depressive disorder, single episode, unspecified (principal); F10.239 Alcohol dependence with withdrawal, unspecified; F15.20 Other stimulant dependence, uncomplicated; R45.851 Suicidal ideations; E03.9 Hypothyroidism, unspecified; F14.10 Cocaine abuse, uncomplicated; F17.210 Nicotine dependence, cigarettes, uncomplicated; F41.9 Anxiety disorder, unspecified; G89.29 Other chronic pain; I10 Essential (primary) hypertension; J45.909 Unspecified asthma, uncomplicated; Z59.00 Homelessness unspecified; Z79.890 Hormone replacement therapy; Z79.899 Other long term (current) drug therapy; Z56.0 Unemployment, unspecified; Z20.822 Contact with and (suspected) exposure to COVID-19
CPT/HCPCS: 80306; 81001; 82075; 87635

== ENCOUNTER 2022-08-13 09:32 | Inpatient (IN) | payer MEDICAID, OTHER ==
--- NOTE | 2022-08-13 10:32 | ED ---
Psych HPI - General Chief Complaint: Psychiatric Symptoms Stated Complaint: mental health Time Seen by Provider: 08/13/22 10:09 Source: patient, RN notes reviewed, old records reviewed Mode of arrival: ambulatory - History of Present Illness Initial Comments: Patient is a 62-year-old -[place] male who presents to the emergency room with suicidal thoughts and a plan of jumping out in front of a car to commit suicide. He reports that his low mood has been ongoing for approximately 3 days with worsening symptoms today. He reports that after his discharge from the hospital in May of this year he never picked up his prescription for duloxetine and has continued his daily drinking. He reports that he drinks "a lot" but is unsure exact amounts. In addition to his alcoholism and chronic depression he has a past medical history significant for asthma and hypertension. He denies any medical complaints at this time including denial of chest pain, shortness of breath, abdominal pain, nausea, vomiting, headache, dizziness, fevers or chills. - Related Data Home Medications Medication Instructions Recorded Confirmed Levothyroxine Sodium [Synthroid] 125 mcg PO DAILY 08/13/22 08/13/22 Previous Rx's Medication Instructions Recorded amLODIPine [Norvasc] 10 mg PO DAILY 30 Days tab 05/13/22 Allergies Allergy/AdvReac Type Severity Reaction Status Date / Time No Known Allergies Allergy Verified 08/13/22 11:46 Review of Systems ROS Statement: Those systems with pertinent positive or pertinent negative responses have been documented in the HPI. ROS Other: All systems not noted in ROS Statement are negative. Past Medical History Past Medical History: Asthma, Hypertension History of Any Multi-Drug Resistant Organisms: None Reported Past Surgical History: No Surgical Hx Reported Past Anesthesia/Blood Transfusion Reactions: No Reported Reaction Past Psychological History: Depression Smoking Status: Current every day smoker Past Alcohol Use History: Daily, Heavy Past Drug Use History: Cocaine General Exam General appearance: alert, in no apparent distress Head exam: Present: atraumatic, normocephalic, normal inspection Eye exam: Present: normal appearance, PERRL, EOMI. Absent: scleral icterus, conjunctival injection, periorbital swelling ENT exam: Present: normal exam, mucous membranes moist Neck exam: Present: normal inspection Respiratory exam: Present: normal lung sounds bilaterally. Absent: respiratory distress, wheezes, rales, rhonchi, stridor Cardiovascular Exam: Present: regular rate, normal rhythm, normal heart sounds. Absent: systolic murmur, diastolic murmur, rubs, gallop, clicks GI/Abdominal exam: Present: soft, normal bowel sounds. Absent: distended, tenderness, guarding, rebound, rigid Rectal exam: Present: deferred Extremities exam: Present: normal inspection, full ROM. Absent: tenderness, pedal edema, joint swelling, calf tenderness Back exam: Present: normal inspection Neurological exam: Present: alert, oriented X3, CN II-XII intact Psychiatric exam: Present: depressed, flat affect Skin exam: Present: warm, dry, intact, normal color. Absent: rash Course Vital Signs 08/13/22 09:57 Temperature 98.1 F Pulse Rate 68 Respiratory 18 Rate Blood Pressure 153/92 O2 Sat by Pulse 99 Oximetry Medical Decision Making - Medical Decision Making 62-year-old -[place] male presenting to the emergency room with worsening depression and suicidal thoughts with plan. Overall medically stable no indication for any diagnostic imaging or laboratory studies for medical clearance. Will clear for EPS evaluation from a medical standpoint. EPS evaluation reveals patient will be admitted for mental health admission. Will discharge with planned admission to mental health. Case discussed with Dr. Whitaker. - Lab Data Lab Results 08/13/22 08/13/22 Range/Units 11:46 15:50 Urine Opiates Screen Not Detected (NotDetected) Ur Oxycodone Screen Not Detected (NotDetected) Urine Methadone Screen Not Detected (NotDetected) Ur Propoxyphene Screen Not Detected (NotDetected) Ur Barbiturates Screen Not Detected (NotDetected) U Tricyclic Antidepress Not Detected (NotDetected) Ur Phencyclidine Scrn Not Detected (NotDetected) Ur Amphetamines Screen Detected H (NotDetected) U Methamphetamines Scrn Detected H (NotDetected) U Benzodiazepines Scrn Not Detected (NotDetected) Urine Cocaine Screen Detected H (NotDetected) U Marijuana (THC) Screen Not Detected (NotDetected) Coronavirus (PCR) Not Detected (Not Detectd) Disposition Clinical Impression: Depression Disposition: HOME SELF-CARE Condition: Stable Is patient prescribed a controlled substance at d/c from ED?: No Time of Disposition: 17:22
[2022-08-13 16:16] LABS: Amphetamine Screen,Urine Detected (NotDetected); Barbiturate Screen,Urine Not Detected (NotDetected); Benzodiazepines Screen,Urine Not Detected (NotDetected); Cocaine Screen,Urine Detected (NotDetected); Methadone Screen, Urine Not Detected (NotDetected); Opiate Screen,Urine Not Detected (NotDetected); Oxycodone Screen, Urine Not Detected (NotDetected); Phencyclidine Screen,Urine Not Detected (NotDetected); Tricyclic Antidepressant,Urine Not Detected (NotDetected); Urn Cannabinoid Scrn Not Detected (NotDetected)
[2022-08-13] MEDS ORDERED: MAG HYDROX/AL HYDROX/SIMETH 30 ML CUP PO PRN (17:28)
[2022-08-13] MEDS ORDERED: MAGNESIUM HYDROXIDE 2,400 MG/10 ML CUP PO PRN (17:28)
[2022-08-13] MEDS ORDERED: ACETAMINOPHEN TAB 325 MG TAB PO PRN (17:28)
[2022-08-13] MEDS ORDERED: OLANZapine 5 MG TAB PO PRN (17:31)
[2022-08-13] MEDS ORDERED: hydrOXYzine pamoate 25 MG CAP PO PRN (17:31)
[2022-08-13] MEDS ORDERED: hydrOXYzine HCL 50 MG/ML 1 ML VIAL IM PRN (17:31)
[2022-08-13] MEDS ORDERED: OLANZapine 10 MG VIAL IM PRN (17:31)
[2022-08-13] MEDS: chlordiazePOXIDE 25 MG CAP PO SCH (20:20)
[2022-08-14] MEDS: LEVOTHYROXINE 125 MCG TAB PO SCH (06:29)
[2022-08-14 06:58] VITALS: TEMP 97.8
[2022-08-14] MEDS ORDERED: NICOTINE 14MG/24HR PATCH TRANSDERM SCH (09:00)
[2022-08-14] MEDS ORDERED: chlorproMAZINE 25 MG TAB PO PRN ×2 (09:44)
[2022-08-14] MEDS: chlordiazePOXIDE 25 MG CAP PO SCH ×3 (09:45→20:21)
[2022-08-14] MEDS: amLODIPine 10 MG TAB PO SCH (09:45)
--- NOTE | 2022-08-14 11:38 | P.HP ---
Psychiatric H&P - . H&P Date: 08/14/22 History & Physical: Allergies Allergy/AdvReac Type Severity Reaction Status Date / Time No Known Allergies Allergy Verified 08/13/22 19:28 Vital Signs Temp 97.8 F 08/14/22 06:50 Pulse 72 08/14/22 09:44 Resp 16 08/14/22 06:50 BP 168/87 08/14/22 09:44 Pulse Ox 99 08/13/22 17:27 FiO2 Intake & Output 08/13/22 08/14/22 08/14/22 18:59 06:59 18:59 Weight 95.254 kg 95.254 kg Laboratory Last Values Urine Opiates Screen Not Detected (NotDetected) 08/13/22 15:50 Ur Oxycodone Screen Not Detected (NotDetected) 08/13/22 15:50 Urine Methadone Screen Not Detected (NotDetected) 08/13/22 15:50 Ur Propoxyphene Screen Not Detected (NotDetected) 08/13/22 15:50 Ur Barbiturates Screen Not Detected (NotDetected) 08/13/22 15:50 U Tricyclic Antidepress Not Detected (NotDetected) 08/13/22 15:50 Ur Phencyclidine Scrn Not Detected (NotDetected) 08/13/22 15:50 Ur Amphetamines Screen Detected (NotDetected) H 08/13/22 15:50 U Methamphetamines Scrn Detected (NotDetected) H 08/13/22 15:50 U Benzodiazepines Scrn Not Detected (NotDetected) 08/13/22 15:50 Urine Cocaine Screen Detected (NotDetected) H 08/13/22 15:50 U Marijuana (THC) Screen Not Detected (NotDetected) 08/13/22 15:50 Coronavirus (PCR) Not Detected (Not Detectd) 08/13/22 11:46 08/14/22 11:37 IDENTIFYING DATA: Patient is a 62-year-old -Greek male with significant history of polysubstance abuse presents to the hospital voluntarily for suicidal and homicidal ideation. HPI: Patient presented to the hospital on 08/13/2022, brought into the hospital voluntarily for suicidal and homicidal ideation. The patient has been noncompliant with his medication since mid May. He reports that he has been feeling increasingly suicidal with plans to jump in front of a car or jump off the bridge. The patient admits to recent use of crack cocaine and met hamphetamines. He also has been drinking "like a fish." The patient reports that he is homicidal towards drug dealers because they keep on trying to kill him and others with their drugs. He reports that he lost 2 close friends this year due to overdoses. He is very irritable and does not wish to be engaged in the psychiatric interview. He states that he just wants to sleep. PAST PSYCHIATRIC HISTORY: Patient has a history of depression and polysubstance abuse. The patient was last discharged on a regimen of Cymbalta however the patient has been chronically nonadherent with dedication's and always expresses a desire to not take any medications when admitted on the psychiatric unit. The patient was last hospitalized on our psychiatric unit in April of this year. The patient does not follow up with his outpatient appointments. He reports no prior attempts at suicide. PMH: Asthma, hypertension ALLERGIES: NO KNOWN DRUG ALLERGIES CHEMICAL DEPENDENCY HISTORY: Patient abuses alcohol, methamphetamines, and crack cocaine. He is unable to verbalize his last use to this provider. FAMILY PSYCHIATRIC/SUBSTANCE USE HISTORY: No reported family psychiatric history. SOCIAL HISTORY: Patient was born and raised in [place] and moved to [place] when he was young. He completed high school and did some college. He was incarcerated several years ago for drug-related charges. He is currently homeless and has 3 kids. He is currently unemployed. MENTAL STATUS EXAM: General Appearance: Patient appears to be stated age is alert, directable, and attempts to cooperate. Patient appears to have poor hygiene and grooming. Tall build. Behavior: Patient displays psychomotor agitation. Speech: Patient's speech is fluent and nonpressured. Loud in volume. Mood/Affect: Patient reports their mood is depressed, affect is incongruent, irritable, demanding. Suicidality/Homicidality: Patient reports that he is suicidal and that he is homicidal towards drug dealers. Perceptions: Patient denies any visual hallucinations and denies any auditory hallucinations Though content/process: The patient is quite oppositional and demanding. Memory and concentration: AOX3, grossly intact for the purposes of this session. Can spell "WORLD" backwards Judgment and insight: Very poor Vital Signs Temp 97.8 F 08/14/22 06:50 Pulse 72 10/07/22 09:44 Resp 16 08/14/22 06:50 BP 168/87 08/14/22 09:44 Pulse Ox 99 08/13/22 17:27 FiO2 Intake & Output 08/13/22 08/14/22 08/14/22 18:59 06:59 18:59 Weight 95.254 kg 95.254 kg Laboratory Results Urine Opiates Screen Not Detected (NotDetected) 08/13/22 15:50 Ur Oxycodone Screen Not Detected (NotDetected) 08/13/22 15:50 Urine Methadone Screen Not Detected (NotDetected) 08/13/22 15:50 Ur Propoxyphene Screen Not Detected (NotDetected) 08/13/22 15:50 Ur Barbiturates Screen Not Detected (NotDetected) 08/13/22 15:50 U Tricyclic Antidepress Not Detected (NotDetected) 08/13/22 15:50 Ur Phencyclidine Scrn Not Detected (NotDetected) 08/13/22 15:50 Ur Amphetamines Screen Detected (NotDetected) H 08/13/22 15:50 U Methamphetamines Scrn Detected (NotDetected) H 08/13/22 15:50 U Benzodiazepines Scrn Not Detected (NotDetected) 08/13/22 15:50 Urine Cocaine Screen Detected (NotDetected) H 08/13/22 15:50 U Marijuana (THC) Screen Not Detected (NotDetected) 08/13/22 15:50 Coronavirus (PCR) Not Detected (Not Detectd) 08/13/22 11:46 STRENGTHS/WEAKNESSES: Unable to identify patient's strengths. Weakness is that the patient is nonadherent with any treatment and refuses to engage in psychiatric care outside his purview. 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 Patient signed adult voluntary form and medication consent and is placed in patient's chart. -Medications : Librium 25 mg by mouth 3 times a day for alcohol withdrawal The patient is refusing any other medications at this time. Anticipate discharge on Wednesday as this patient is usually nonadherent with any medications prescribed and refuses to participate in care programs recommended by this treatment team. -Vistaril and Thorazine PRN for agitation/aggression -Patient was counseled on substance abuse however appears to be pre- contemplative. -Patient is refusing medications. Patient states that he just "needs to sleep and get some rest." -Internal Medicine consult to perform medical evaluation and physical. -NRT - nicotine patch -SW on board for discharge planning. Encourage patient to participate in groups to work on coping skills.
[2022-08-14] MEDS ORDERED: ALBUTEROL HFA INHALER INHALATION PRN (12:07)
[2022-08-14] MEDS ORDERED: cloNIDine HCL 0.1 MG TAB PO PRN (12:09)
[2022-08-14 16:11] LABS: Basophils % (A) 1 %; Eosinophils # (A) 0.2 k/uL (0-0.7); Eosinophils % (A) 4 %; HGB 14.5 gm/dL (13.0-17.5); Lymphocytes # (A) 1.6 k/uL (1.0-4.8); Lymphocytes % (A) 38 %; MCH 31.7 pg (25.0-35.0); MCV 96.1 fL (80.0-100.0); Monocytes # (A) 0.3 k/uL (0-1.0); Monocytes % (A) 7 %; Neutrophils # (A) 2.1 k/uL (1.3-7.7); Neutrophils % (A) 49 %; Platelet Count 333 k/uL (150-450); RBC 4.58 m/uL (4.30-5.90); RDW 13.1 % (11.5-15.5); WBC 4.3 k/uL (3.8-10.6)
[2022-08-14 16:19] LABS: ALT 22 U/L (4-49); AST 22 U/L (17-59); African American GFR (CKD) >90 (>60 ml/min/1.73 sqM); Albumin 3.8 g/dL (3.5-5.0); Alkaline Phosphatase 87 U/L (38-126); Anion Gap 10 mmol/L; Bilirubin, Delta 0.1 mg/dL (0.0-0.2); Bilirubin,Unconjugated 0.2 mg/dL (0.0-1.1); Blood Urea Nitrogen 13 mg/dL (9-20); Calcium 9.3 mg/dL (8.4-10.2); Carbon Dioxide 28 mmol/L (22-30); Chloride 102 mmol/L (98-107); Glucose 120 mg/dL (74-99); Non-African American GFR(CKD) >90 (>60 ml/min/1.73 sqM); Potassium 4.2 mmol/L (3.5-5.1); Sodium 140 mmol/L (137-145); Total Bilirubin 0.3 mg/dL (0.2-1.3); Total Protein 6.7 g/dL (6.3-8.2)
--- NOTE | 2022-08-14 23:36 | CONS ---
CONSULTATION REASON FOR CONSULTATION: Advise regarding asthma and other multiple medical issues, requested by Psychiatry. HISTORY OF PRESENT ILLNESS: This 62-year-old gentleman with past medical history of asthma, hypertension, being followed by Luana Colbert and Dr. Michelle Jaeger, was admitted as psychiatric evaluation for depression and polysubstance abuse. No chest pain. No palpitations. No fever. PAST MEDICAL HISTORY: Reviewed, include hypertension, asthma. HOME MEDICATIONS: Reviewed include Norvasc. Doses and rest of medication noted. ALLERGIES: None known. FAMILY HISTORY: No history of heart disease or strokes in the family. SOCIAL HISTORY: Polysubstance abuse, substance abuse including smoking, cocaine, alcohol. REVIEW OF SYSTEMS: A 14-point review is negative except as mentioned earlier. PHYSICAL EXAMINATION: VITAL SIGNS: Pulse 56, blood pressure 160/89, and respirations 16. HEENT: Conjunctivae normal. NECK: No jugular venous distention. CARDIOVASCULAR: S1, S2, no murmurs. RESPIRATIONS: Diminished at the basis. No rhonchi, no crackles. ABDOMEN: Soft. NERVOUS SYSTEM: No focal deficits. Cranial nerves II through XII grossly intact. Moves all 4 limbs. No signs of cerebellar dysfunction. Gait is normal. SKIN: No ulcer, rash, or bleeding. JOINTS: No active deforming arthropathy. LABS: Reviewed. ASSESSMENT: 1. Polysubstance abuse. 2. Hypertension. 3. History of asthma. RECOMMENDATIONS AND DISCUSSION: In this 62-year-old gentleman who presented with multiple medical issues, I have recommend to resume the home medications including Norvasc. Clonidine may be used on a p.r.n. basis for elevation of blood pressure. If the blood pressure is persistently elevated, please let us know to adjust further medications. Otherwise, recommend albuterol p.r.n. also. Recommend close followup with primary physician, substance abuse rehab and prognosis guarded. Further recommendations to follow. MMODL / IJN: [id number] /
[2022-08-15 01:48] LABS: Chol/HDL Ratio 2.39 Ratio; LDL Cholesterol,Calculated 78.6 mg/dL (0.0-131.0); VLDL Calculation 18.38 mg/dL (5.00-40.00)
[2022-08-15] MEDS: amLODIPine 10 MG TAB PO SCH (09:48)
[2022-08-15] MEDS: LEVOTHYROXINE 125 MCG TAB PO SCH (09:48)
[2022-08-15] MEDS: chlordiazePOXIDE 25 MG CAP PO SCH ×3 (09:49→21:00)
--- NOTE | 2022-08-15 10:37 | P.PN ---
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 Alcohol use disorder, severe Cocaine use disorder Methamphetamine use disorder Tobacco use disorder Subjective data: Patient states that he is being here few days and that that today's not ready to talk Patient states that he will be better tomorrow The patient then came to see this physician while I was interviewing another patient and demanded why I had twisted his arm Patient then accused another patient of doing the same to her since I stated that I didn't never touched him Patient walked away but looks perplexed Patient exhibited some psychotic symptoms which may be related to his substance use/amphetamine use Patient however does not exhibit any aggression or agitation at this time Objective data:/Mental status examination MENTAL STATUS EXAM: General Appearance: Patient appears to be stated age is alert, directable, and attempts to cooperate. Patient appears to have poor hygiene and grooming. Tall build. Behavior: Patient displays psychomotor agitation. Speech: Patient's speech is fluent and nonpressured. Loud in volume. Mood/Affect: Patient reports their mood is depressed, affect is incongruent, irritable, demanding. Suicidality/Homicidality: Patient reports that he is suicidal and that he is homicidal towards drug dealers. Perceptions: Patient denies any visual hallucinations and denies any auditory hallucinations Though content/process: The patient is quite oppositional and demanding. Memory and concentration: AOX3, grossly intact for the purposes of this session. 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 Patient signed adult voluntary form and medication consent and is placed in patient's chart. -Medications : Although it is noted that the patient has refused other medications would recommend Zyprexa 5 mg twice a day and to be offered to the patient Continue close monitoring for any agitation and aggression or escalation of any physical or verbal aggression and when necessary medications are in place Librium 25 mg by mouth 3 times a day for alcohol withdrawal -Vistaril and Thorazine PRN for agitation/aggression -Patient was counseled on substance abuse however appears to be pre- contemplative. -Patient is refusing medications. Patient states that he just "needs to sleep and get some rest." -Internal Medicine consult to perform medical evaluation and physical. -NRT - nicotine patch -SW on board for discharge planning. Encourage patient to participate in groups to work on coping skills. Objective - Vital Signs Vital signs: Vital Signs Temp 97.8 F 08/15/22 09:50 Pulse 78 08/15/22 09:50 Resp 18 08/15/22 09:50 BP 160/98 08/15/22 09:50 Pulse Ox 97 08/15/22 09:50 FiO2 - Labs CBC & Chem 7: 08/14/22 15:18 08/14/22 15:18 Labs: Abnormal Lab Results - Last 24 Hours (Table) 08/14/22 Range/Units 15:18 Glucose 120 H (74-99) mg/dL HDL Cholesterol 70.00 H (40.00-60.00) mg/dL TSH 21.400 H (0.465-4.680) mIU/L
[2022-08-16] MEDS: LEVOTHYROXINE 125 MCG TAB PO SCH (06:13)
[2022-08-16] MEDS: chlordiazePOXIDE 25 MG CAP PO SCH ×3 (09:12→21:10)
[2022-08-16] MEDS: amLODIPine 10 MG TAB PO SCH (09:12)
[2022-08-16 09:17] VITALS: BP 141/80; PULSE 63; RESP 16
--- NOTE | 2022-08-16 10:16 | P.PN ---
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 Alcohol use disorder, severe Cocaine use disorder Methamphetamine use disorder Tobacco use disorder The patient again refused to be interviewed today Patient was laying in bed and turned his back towards me and pulled the sheets over his head Following is a excerpt from the yesterday's interaction Subjective data: Patient states that he is being here few days and that that today's not ready to talk Patient states that he will be better tomorrow The patient then came to see this physician while I was interviewing another patient and demanded why I had twisted his arm Patient then accused another patient of doing the same to her since I stated that I didn't never touched him Patient walked away but looks perplexed Patient exhibited some psychotic symptoms which may be related to his substance use/amphetamine use Patient however does not exhibit any aggression or agitation at this time Objective data:/Mental status examination MENTAL STATUS EXAM: General Appearance: Patient appears to be stated age is alert, directable, and attempts to cooperate. Patient appears to have poor hygiene and grooming. Tall build. Behavior: Patient displays psychomotor agitation. Speech: Patient's speech is fluent and nonpressured. Loud in volume. Mood/Affect: Patient reports their mood is depressed, affect is incongruent, irritable, demanding. Suicidality/Homicidality: Patient reports that he is suicidal and that he is homicidal towards drug dealers. Perceptions: Patient denies any visual hallucinations and denies any auditory hallucinations Though content/process: The patient is quite oppositional and demanding. Memory and concentration: AOX3, grossly intact for the purposes of this session. 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 Patient signed adult voluntary form and medication consent and is placed in patient's chart. -Medications : Although it is noted that the patient has refused other medications would recommend Zyprexa 5 mg a day and to be offered to the patient Continue close monitoring for any agitation and aggression or escalation of any physical or verbal aggression and when necessary medications are in place Librium 25 mg by mouth 3 times a day for alcohol withdrawal -Vistaril and Thorazine PRN for agitation/aggression -Patient was counseled on substance abuse however appears to be pre- contemplative. -Patient is refusing medications. Patient states that he just "needs to sleep and get some rest." -Internal Medicine consult to perform medical evaluation and physical. -NRT - nicotine patch -SW on board for discharge planning. Encourage patient to participate in groups to work on coping skills. Objective - Vital Signs Vital signs: Vital Signs Temp 97.8 F 08/15/22 09:50 Pulse 63 08/16/22 09:12 Resp 16 08/16/22 09:12 BP 141/80 08/16/22 09:12 Pulse Ox 97 08/15/22 09:50 FiO2 - Labs CBC & Chem 7: 08/14/22 15:18 08/14/22 15:18
[2022-08-17] MEDS: LEVOTHYROXINE 125 MCG TAB PO SCH (06:51)
[2022-08-17] MEDS ORDERED: OLANZapine 5 MG TAB PO SCH (09:00)
[2022-08-17] MEDS: amLODIPine 10 MG TAB PO SCH (09:21)
[2022-08-17] MEDS: chlordiazePOXIDE 25 MG CAP PO SCH (09:23)
--- NOTE | 2022-08-17 13:16 | P.DS ---
Providers Date of admission: 08/13/22 17:17 Expected date of discharge: 08/17/22 Attending physician: Ozzie Cooper MD Consults: 08/13/22 17:28 Consult Physician Routine Consulting Provider: Rafael Mahajan Consult Reason/Comments: Medical H&P Do you want consulting provider notified?: Yes Primary care physician: Stated None - Discharge Diagnosis(es) (1) Depressive disorder Current Visit: Yes Status: Acute Priority: High (2) Alcohol use disorder, severe, dependence Current Visit: Yes Status: Chronic Priority: Medium (3) Cocaine use disorder Current Visit: Yes Status: Chronic Priority: Medium (4) Methamphetamine use disorder, moderate Current Visit: Yes Status: Chronic Priority: Medium Hospital Course: Admission HPI: Patient is a 62-year-old -Dominican male with significant history of polysubstance abuse presents to the hospital voluntarily for suicidal and homicidal ideation. Patient presented to the hospital on 08/13/2022, brought into the hospital voluntarily for suicidal and homicidal ideation. The patient has been noncompliant with his medication since mid May. He reports that he has been feeling increasingly suicidal with plans to jump in front of a car or jump off the bridge. The patient admits to recent use of crack cocaine and methamphetamines. He also has been drinking "like a fish." The patient reports that he is homicidal towards drug dealers because they keep on trying to kill him and others with their drugs. He reports that he lost 2 close friends this year due to overdoses. He is very irritable and does not wish to be engaged in the psychiatric interview. He states that he just wants to sleep. Patient has a history of depression and polysubstance abuse. The patient was last discharged on a regimen of Cymbalta however the patient has been chronically nonadherent with dedication's and always expresses a desire to not take any medications when admitted on the psychiatric unit. The patient was last hospitalized on our psychiatric unit in April of this year. The patient does not follow up with his outpatient appointments. He reports no prior attempts at suicide. Hospital course: Upon admission to the unit patient was initially presenting as irritable, agitated, and noncooperative with psychiatric care. The patient expressed that he was requiring rest and that he was being bothered by numerous staff for an assessment. The patient states that he is very depressed and suicidal and he is homicidal towards drug dealers. Patient was however directable and agreeable to commence treatment. Patient got along well with other patients on the unit and followed unit protocol. Patient was compliant with the medications and denied any side effects throughout hospital course. Patient was started on Zyprexa for mood stabilization. I'll request the hospital physician, the patient displayed no significant psychiatric symptoms aside from the initial episode of agitation. He was noted to be expansive, friendly, and polite with peers and at times with staff and social work. The patient did not meet criteria for continued inpatient psychiatric admission, the patient was informed that we would be looking towards discharge. The patient expresses a strong desire to go to [facility] straight from the inpatient psychiatric unit. Upon hearing that he would not be able to stay until he is transferred to the rehab, the patient becomes very irritable and states that he will likely use drugs as soon as he leaves here. Mental status exam: General Appearance: Patient appears to be stated age is alert, however irritable upon informed that he would be discharged today. Behavior: Patient displays elevated psychomotor activity and irritability. Speech: Patient's speech is loud in volume. Mood/Affect: Patient reports their mood is "I'm just going to go back on the streets and use drugs", affect is irritable and oppositional. Suicidality/Homicidality: Patient reports that he is going to use drugs upon hearing that he would not be transferred to rehab from the psychiatric unit. He does report homicidal ideation to unspecified drug dealers. Perceptions: Patient denies any auditory or visual hallucinations. Though content/process: Thought content is significant for secondary gain. Thought processes dysphoric upon hearing that he would not be going to rehab and would be discharged. Memory and concentration: AOX3, grossly intact for the purposes of this session. Can spell "WORLD" backwards correctly. 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 Patient will remain at chronically elevated risk for harm to self and/or others due to his impulsivity and polysubstance abuse. Prognosis is guarded as the patient is reporting a desire to use drugs upon discharge due to the fact that he is not receiving what he wants. Concern for secondary gain as the patient is homeless. -Continue medications: Zyprexa 5 mg by mouth daily for mood stabilization -Patient was counseled on the need for medication compliance and appropriate follow-up at mental health and also primary care for medical issues. Patient verbalized understanding and agreed. -Social work to arrange for and conduct family meeting to ensure safety upon discharge and answer any questions/concerns. Social work also to arrange for patients follow up appointments for psychiatric care along with follow up with primary care provider. -Patient counseled on abstaining from recreational drugs and marijuana and alcohol. Was informed/educated on the adverse effects on their physical and mental health. Patient verbally agreed and understood. Patient was offered substance abuse and the packet has been sent out to [facility]. However, the patient would like to have continued admission prior to transfer. -Patient was instructed to return to the hospital or seek immediate medical care if their psychiatric or medical symptoms do worsen or reoccur. -Psychoeducation and supportive therapy provided to patient. Risks and benefits of pharmacological treatment versus the risks and benefits of nontreatment weight and discussed. Informed consent discussion held. Common side effects of psychotropics discussed such as, but not limited to headache, GI disturbance, sexual dysfunction, movement disorders, sedation, and orthostatic hypotension. Life threatening and blackbox warnings of prescribed medications also discussed. Potential risks of operating a vehicle or heavy machinery discussed with patient at length. Advised on importance of compliance and a reliable and responsible manner. Patient advised to review FDA consumer labeling of all medications prior to taking. Patient verbalized understanding of potential risks, and agrees with current treatment plan. Patient advised to medically contact physician/emergency personnel if any acute changes in condition occur. Vital Signs Temp 97.8 F 08/15/22 09:50 Pulse 63 08/16/22 09:12 Resp 16 08/16/22 09:12 BP 141/80 08/16/22 09:12 Pulse Ox 97 08/15/22 09:50 FiO2 Intake & Output 08/16/22 08/17/22 08/17/22 18:59 06:59 18:59 Weight 99.5 kg Laboratory Results WBC 4.3 k/uL (3.8-10.6) 08/14/22 15:18 RBC 4.58 m/uL (4.30-5.90) 08/14/22 15:18 Hgb 14.5 gm/dL (13.0-17.5) 08/14/22 15:18 Hct 44.0 % (39.0-53.0) 08/14/22 15:18 MCV 96.1 fL (80.0-100.0) 08/14/22 15:18 MCH 31.7 pg (25.0-35.0) 08/14/22 15:18 MCHC 33.0 g/dL (31.0-37.0) 08/14/22 15:18 RDW 13.1 % (11.5-15.5) 08/14/22 15:18 Plt Count 333 k/uL (150-450) 08/14/22 15:18 MPV 9.0 08/14/22 15:18 Neutrophils % 49 % 08/14/22 15:18 Lymphocytes % 38 % 08/14/22 15:18 Monocytes % 7 % 08/14/22 15:18 Eosinophils % 4 % 08/14/22 15:18 Basophils % 1 % 08/14/22 15:18 Neutrophils # 2.1 k/uL (1.3-7.7) 08/14/22 15:18 Lymphocytes # 1.6 k/uL (1.0-4.8) 08/14/22 15:18 Monocytes # 0.3 k/uL (0-1.0) 08/14/22 15:18 Eosinophils # 0.2 k/uL (0-0.7) 08/14/22 15:18 Basophils # 0.0 k/uL (0-0.2) 08/14/22 15:18 Sodium 140 mmol/L (137-145) 08/14/22 15:18 Potassium 4.2 mmol/L (3.5-5.1) 08/14/22 15:18 Chloride 102 mmol/L (98-107) 08/14/22 15:18 Carbon Dioxide 28 mmol/L (22-30) 08/14/22 15:18 Anion Gap 10 mmol/L 08/14/22 15:18 BUN 13 mg/dL (9-20) 08/14/22 15:18 Creatinine 0.88 mg/dL (0.66-1.25) 08/14/22 15:18 Est GFR (CKD-EPI)AfAm >90 (>60 ml/min/1.73 sqM) 08/14/22 15:18 Est GFR (CKD-EPI)NonAf >90 (>60 ml/min/1.73 sqM) 08/14/22 15:18 Glucose 120 mg/dL (74-99) H 08/14/22 15:[address] Glu mg/dL 100 08/14/22 15:18 Hemoglobin A1c 5.1 % (0.0-6.0) 08/14/22 15:18 Calcium 9.3 mg/dL (8.4-10.2) 08/14/22 15:18 Total Bilirubin 0.3 mg/dL (0.2-1.3) 08/14/22 15:18 Conjugated Bilirubin 0.0 mg/dL (0.0-0.3) 08/14/22 15:18 Unconjugated Bilirubin 0.2 mg/dL (0.0-1.1) 08/14/22 15:18 Delta Bilirubin 0.1 mg/dL (0.0-0.2) 08/14/22 15:18 AST 22 U/L (17-59) 08/14/22 15:18 ALT 22 U/L (4-49) 08/14/22 15:18 Alkaline Phosphatase 87 U/L (38-126) 08/14/22 15:18 Total Protein 6.7 g/dL (6.3-8.2) 08/14/22 15:18 Albumin 3.8 g/dL (3.5-5.0) 08/14/22 15:18 Triglycerides 91.90 mg/dL (0.00-149.00) 08/14/22 15:18 Cholesterol 167.00 mg/dL (0.00-200.00) 08/14/22 15:18 LDL Cholesterol, Calc 78.6 mg/dL (0.0-131.0) 08/14/22 15:18 VLDL Cholesterol, Calc 18.38 mg/dL (5.00-40.00) 08/14/22 15:18 HDL Cholesterol 70.00 mg/dL (40.00-60.00) H 08/14/22 15:18 Cholesterol/HDL Ratio 2.39 Ratio 08/14/22 15:18 TSH 21.400 mIU/L (0.465-4.680) H 08/14/22 15:18 Free T4 0.82 ng/dL (0.78-2.19) 08/14/22 15:18 Urine Opiates Screen Not Detected (NotDetected) 08/13/22 15:50 Ur Oxycodone Screen Not Detected (NotDetected) 08/13/22 15:50 Urine Methadone Screen Not Detected (NotDetected) 08/13/22 15:50 Ur Propoxyphene Screen Not Detected (NotDetected) 08/13/22 15:50 Ur Barbiturates Screen Not Detected (NotDetected) 08/13/22 15:50 U Tricyclic Antidepress Not Detected (NotDetected) 08/13/22 15:50 Ur Phencyclidine Scrn Not Detected (NotDetected) 08/13/22 15:50 Ur Amphetamines Screen Detected (NotDetected) H 08/13/22 15:50 U Methamphetamines Scrn Detected (NotDetected) H 08/13/22 15:50 U Benzodiazepines Scrn Not Detected (NotDetected) 08/13/22 15:50 Urine Cocaine Screen Detected (NotDetected) H 08/13/22 15:50 U Marijuana (THC) Screen Not Detected (NotDetected) 08/13/22 15:50 Coronavirus (PCR) Not Detected (Not Detectd) 08/13/22 11:46 Allergies Allergy/AdvReac Type Severity Reaction Status Date / Time No Known Allergies Allergy Verified 08/13/22 19:28 Patient Condition at Discharge: Stable Plan - Discharge Summary Discharge Rx Participant: Yes New Discharge Prescriptions: New amLODIPine [Norvasc] 10 mg PO DAILY 30 Days tab Levothyroxine Sodium [Synthroid] 125 mcg PO DAILY@0630 30 Days tab OLANZapine [ZyPREXA] 5 mg PO DAILY 30 Days tab Discontinued amLODIPine [Norvasc] 10 mg PO DAILY 30 Days tab Levothyroxine Sodium [Synthroid] 125 mcg PO DAILY Discharge Medication List Levothyroxine Sodium [Synthroid] 125 mcg PO DAILY@0630 30 Days tab 08/17/22 [Rx] OLANZapine [ZyPREXA] 5 mg PO DAILY 30 Days tab 08/17/22 [Rx] amLODIPine [Norvasc] 10 mg PO DAILY 30 Days tab 10/10/22 [Rx] Follow up Appointment(s)/Referral(s): Michelle Jaeger MD [STAFF PHYSICIAN] - 1-2 days Activity/Diet/Wound Care/Special Instructions: Avoid the use of street drugs and alcohol. Take all prescriptions as prescribed. When you are in need of refills on your medications, please contact your medical provider and/or outpatient psychiatrist to have this done. Please go to scheduled outpatient appointment for aftercare treatment. If symptoms return or become worse, call the crisis line at and/or go to the nearest emergency room for evaluation. Discharge Disposition: HOME SELF-CARE
[2022-08-17] MEDS ORDERED: chlordiazePOXIDE 25 MG CAP PO SCH (21:00)
== END 2022-08-17 14:28 | disposition home or self-care (01) | DRG 881 ==
LOC: EC 09:32 → 3MHU 17:17
PROVIDERS: ADMIT Psychiatry & Neurology Psychiatry; ATTEND Psychiatry & Neurology Psychiatry
DX: F32.A Depression, unspecified (principal); R45.851 Suicidal ideations; F10.20 Alcohol dependence, uncomplicated; F14.90 Cocaine use, unspecified, uncomplicated; F15.90 Other stimulant use, unspecified, uncomplicated; F17.200 Nicotine dependence, unspecified, uncomplicated; F29 Unspecified psychosis not due to a substance or known physiological condition; I10 Essential (primary) hypertension; J45.909 Unspecified asthma, uncomplicated; R45.850 Homicidal ideations; Z56.0 Unemployment, unspecified; Z59.00 Homelessness unspecified; Z79.890 Hormone replacement therapy; Z91.14 Patient's other noncompliance with medication regimen; Z20.822 Contact with and (suspected) exposure to COVID-19
CPT/HCPCS: 80053; 80061; 80306; 82075; 82248; 83036; 84439; 84443; 85025; 87635